=== PATIENT | female | born 1950 | race Caucasian/White ===

== ENCOUNTER 2020-05-06 04:29 | Emergency (ER) | payer MEDICARE, OTHER, SELFPAY ==
--- NOTE | 2020-05-06 | CT_ITS ---
EXAMINATION: CT HIP WITHOUT CONTRAST, LEFT CLINICAL INFORMATION: Pain COMPARISON: Radiographs from today TECHNIQUE: Multidetector volumetric imaging of the left hip performed without IV contrast. Coronal and sagittal reformatted images are obtained and reviewed. This CT examination was performed using dose optimization techniques as appropriate, variously including the following: *Automated exposure control *Adjustment of mA and/or kV according to patient size (this includes techniques or standardized protocols for targeted exams where dose is matched to indication/reason for exam; i.e. extremities or head) *Use of iterative reconstruction technique DLP: 211 mGy-cm FINDINGS: There is a minimally displaced fracture of the medial aspect of the left superior pubic ramus. The fracture line does not extend to the pubic symphysis. There is a fracture which is essentially nondisplaced involving the left inferior pubic ramus. The femoral head articulates appropriately with its acetabulum. There is no femoral fracture. Diffuse colonic diverticulosis noted. No lymphadenopathy seen. Mild stranding in the subcutaneous tissues overlying the left hip laterally. IMPRESSION: Left superior and inferior pubic rami fractures, as seen on recent prior radiographs.
--- NOTE | 2020-05-06 | XR_ITS ---
EXAMINATION: XR HIP, LEFT CLINICAL INFORMATION: Fall COMPARISON: None TECHNIQUE: Two views of the left hip. Frontal view of the pelvis. FINDINGS: Nondisplaced fractures are seen involving the left superior and inferior pubic rami. The hips are well aligned. The pubic symphysis is well aligned. The sacroiliac joints are symmetric. The bowel gas pattern is unremarkable. IMPRESSION: Nondisplaced left superior and inferior pubic rami fractures.
[2020-05-06 04:41] VITALS: PULSE 75; RESP 18; TEMP 36.9; O2SAT 96; BMI 45.5
[2020-05-06 04:51] VITALS: BP 140/60; PULSE 77; RESP 18; O2SAT 98
--- NOTE | 2020-05-06 04:59 | ED_ITS ---
HPI - Fall General Chief Complaint: Fall Stated Complaint: FALL HIP PAIN Time Seen by Provider: 05/06/20 04:40 Source: patient Mode of arrival: ambulatory History of Present Illness HPI Narrative: patient states was walking outside and tripped and fell onto left side. Patient states since then was able to stand however having pain on her hip area. Did not feel any chest pain shortness of breath or dizziness prior to fall. Did not hit head during. Patient denies numbness to the left lower extremity denies any other pain Onset (ago): hour(s) ( 2 hours) Fall from: standing Fall witnessed: no Place fall occurred: home Loss of consciousness: none Prolonged down time: no Context: tripped/slipped Location of injury - extremities: left: lower leg Severity: mild Severity scale (1-10): 3 Related Data Allergies Allergy/AdvReac Type Severity Reaction Status Date / Time amoxicillin Allergy Intermediate ? Verified 05/06/20 04:41 Review of Systems Review of Systems: Constitutional : No Weight loss, No Fever, No Chills, No Night Sweats, No Fatigue, No Malaise ENT/Mouth : No Hearing loss, No Ear Pain, No Nasal Congestion, No Sinus Pain, No Hoarseness, No sore throat, No Rhinorrhea, No Swallowing Difficulty Eyes: No Eye Pain, No Swelling, No Redness, No Foreign Body, No Discharge, No Vision Changes Cardiovascular : No Chest Pain, No SOB, No Dyspnea on Exertion, No Orthopnea, No Edema, No Palpitations Respiratory : No Cough, No Sputum, No Wheezing, No Smoke Exposure, No Dyspnea Gastrointestinal : No Nausea, No Vomiting, No Diarrhea, No Constipation, No abdominal Pain, No Hematochezia, No Melena Genitourinary : no irregular bleeding, No Dysuria, No Urinary Frequency, No Hematuria, No Urinary Incontinence, No Urgency, No Flank Pain, No Urinary Flow Changes, No Hesitancy Musculoskeletal : No joint pain, No Myalgias, No Joint Swelling left hip pain Skin : No Skin Lesions, No rash Neuro : No Weakness, No Numbness, No Paresthesias, No Loss of Consciousness, No Dizziness, No Headache Psych : No Anxiety/Panic, No Depression, No SI/HI/AH/VH, No Social Issues, Heme/Lymph: No Bruising, No Bleeding,No Lymphadenopathy Endocrine : No Polyuria, No Polydipsia, No Temperature Intolerance [facility] Past Medical History Medical History COPD (chronic obstructive pulmonary disease) Family History Family History (Updated 05/06/20 @ 05:01 by Jesús Tillman DO) Other Family history non-contributory Social History Social History Smoking Status: Current every day smoker Physical Exam Vital Signs and I&O and Narrative: Vital Signs and I&O: Vital Signs Temp 98.5 F 05/06/20 04:41 Pulse 77 05/06/20 04:51 Resp 18 05/06/20 04:51 BP 140/60 H 05/06/20 04:51 Pulse Ox 98 05/06/20 04:51 Intake & Output 05/05/20 05/05/20 05/06/20 06:59 18:59 06:59 Weight 128 kg Body Mass Index 45.5 vital signs reviewed Appearance: Alert. Oriented X3. No acute distress. Eyes: Pupils equal, round and reactive to light. ENT: Pharynx normal. Neck: Normal inspection. Neck supple. No lymph nodes noted. No crepitus CVS: Normal heart rate and rhythm. Pulses normal. Normal S1 and S2 Respiratory: No respiratory distress. Breath sounds normal. No Wheezing. No rales Abdomen: Soft and nontender. No rigidity. No distention. good BS x4 Skin: Skin warm and dry. Normal skin color. Normal skin turgor. Extremities: No lower extremity edema. Neurovascular intact to all extremities. No Lacerations. No Rash. tenderness to anterior palpation of left hip. Painful left hip with active leg raising of the left Neuro: Oriented X 3. No motor deficit. No sensory deficit. Moving all extermities. No slurred speech.
[2020-05-06 06:03] VITALS: BP 123/71; PULSE 71; RESP 18
== END 2020-05-06 07:08 | disposition home or self-care (01) ==
PROVIDERS: Emergency Provider Emergency Medicine; PCP Internal Medicine
DX: S89.92XA Unspecified injury of left lower leg, initial encounter (principal); M79.662 Pain in left lower leg; W01.0XXA Fall on same level from slipping, tripping and stumbling without subsequent striking against object, initial encounter; Y93.01 Activity, walking, marching and hiking; Y92.9 Unspecified place or not applicable; F17.200 Nicotine dependence, unspecified, uncomplicated; Z71.6 Tobacco abuse counseling
CPT/HCPCS: 73502; 73700; 99284

== ENCOUNTER 2020-05-06 14:24 | Emergency (ER) | payer MEDICARE, OTHER, SELFPAY ==
[2020-05-06 14:28] VITALS: BP 122/67; PULSE 89; RESP 18; TEMP 36.4; O2SAT 98; BMI 20.6
--- NOTE | 2020-05-06 16:06 | ED_ITS ---
HPI - General Adult General Chief complaint: General Medical Stated complaint: PAIN CONTROL Time Seen by Provider: 05/06/20 16:06 History of Present Illness HPI narrative: patient is here for pain from a pelvic fracture which occurred yesterday, she was seen in the ER last night and discharged home with a prescription for Motrin CT scan showed pelvic fractures She is able to ambulate but it is very painful, and the pain level is moderate to severe Related Data Previous Rx's Medication Instructions Recorded ibuprofen [Motrin IB] 600 mg PO Q8H PRN #20 tab 05/06/20 oxycodone 5 mg PO Q6H PRN #30 cap 05/06/20 Allergies Allergy/AdvReac Type Severity Reaction Status Date / Time amoxicillin Allergy Intermediate ? Verified 05/06/20 04:41 Review of Systems Review of Systems: there is no headache no neck pain no chest pain no shortness of breath no abdominal pain, there is pain with ambulation and weight- bearing and with standing up There is no calf pain, no numbness no weakness no paresthesias PMFSH Past Medical History Source: nursing notes reviewed Medical History COPD (chronic obstructive pulmonary disease) Family History Family History (Updated 05/06/20 @ 05:01 by Jesús Tillman DO) Other Family history non-contributory Social History Social History Alcohol intake: current Alcohol intake frequency: holidays/special occasions only Alcohol type: wine Smoking Status: Current some day smoker Smoked in Last 30 Days: No Use of substances other than those prescribed or required for medical reasons: No Advance Directives: No Advance Directives Information Provided: Yes Physical Exam Vital Signs: Vital Signs: Vital Signs Temp Pulse Resp BP Pulse Ox 05/06/20 14:28 97.6 F 89 18 122/67 98 Body Mass Index 20.6 patient is normocephalic, atraumatic The neck is supple and nontender Respiratory no acute distress Abdomen soft nontender Extremities there is tenderness over the anterior pelvic bones and pain is reproduced with movement of the left leg and it is very painful to elevate her left leg, very painful to bear weight but she is able with the assistance of crutches Skin no rash Neuro A&O x3, no motor weakness, no loss of sensation Course Course Course Narrative: patient was treated with oxycodone as a trial to see if that an able her to be more comfortable and to do activities of daily life at home She was offered rehab placement and refused and wants to try to make it home Discharge Plan Discharge Clinical Impression: Pubic ramus fracture Qualifiers: Encounter type: sequela Fracture type: closed Laterality: unspecified l aterality Qualified Code(s): S32.599S - Other specified fracture of unspecified pubis, sequela Patient Disposition: Home, Self-Care Additional Instructions: we will try to see if you are able to function at home with stronger pain medicine so I wrote for oxycodone which is a narcotic so use with caution It can cause constipation so take stool softener available [id number] Return any time if worse Follow with primary doctor or orthopedist for physical therapy and further evaluation Prescriptions: New oxycodone 5 mg capsule 5 mg PO Q6H PRN (Reason: pain) Qty: 30 RF: 0 No Action ibuprofen [Motrin IB] 200 mg tablet 600 mg PO Q8H PRN (Reason: pain) Qty: 20 RF: 0 Interventions: ED Discharge Assessment Last Done: 05/06/20 16:57
[2020-05-06] MEDS: oxyCODONE HCl Immed Release 5 MG TABLET PO (16:35)
== END 2020-05-06 16:50 | disposition home or self-care (01) ==
PROVIDERS: Emergency Provider Emergency Medicine; PCP Internal Medicine
DX: S32.592A Other specified fracture of left pubis, initial encounter for closed fracture (principal); S32.591A Other specified fracture of right pubis, initial encounter for closed fracture; X58.XXXA Exposure to other specified factors, initial encounter; Y93.9 Activity, unspecified; Y92.9 Unspecified place or not applicable; Y99.9 Unspecified external cause status; F17.200 Nicotine dependence, unspecified, uncomplicated; Z71.6 Tobacco abuse counseling
CPT/HCPCS: 73502; 73700; 99283; 99284

== ENCOUNTER → 2020-05-15 13:06 | Outpatient (BNVA) | payer MEDICARE, OTHER, SELFPAY | PROVIDERS: PCP Internal Medicine; Referring Provider Internal Medicine; Visit Provider Physician Assistant | DX: S32.502D Unspecified fracture of left pubis, subsequent encounter for fracture with routine healing (principal) | CPT/HCPCS: 99203 ==

== ENCOUNTER 2020-06-13 12:05 | Outpatient (REF) | payer MEDICARE, OTHER, SELFPAY ==
--- NOTE | 2020-06-13 12:27 | XR_ITS ---
EXAMINATION: XR PELVIS CLINICAL INFORMATION: Closed fracture of the pubis COMPARISON: CT 05/06/2020 TECHNIQUE: AP view of the pelvis. FINDINGS: Left superior and inferior pubic rami fractures are again noted with similar alignment to the prior imaging. The pubic symphysis remains aligned. The hips are well aligned. The sacroiliac joints are intact. Degenerative changes of the lower lumbar spine. XR/XR pelvis 1-2V IMPRESSION: Redemonstration of left superior and inferior pubic rami fractures with unchanged alignment.
== END 2020-06-13 12:06 | disposition home or self-care (01) ==
LOC: HO.HOSX 12:05
PROVIDERS: PCP Internal Medicine; Referring Provider Internal Medicine; Visit Provider Physician Assistant
DX: S32.599A Other specified fracture of unspecified pubis, initial encounter for closed fracture (principal); M79.18 Myalgia, other site
CPT/HCPCS: 72170; 99212

== ENCOUNTER 2021-12-13 07:35 | Outpatient (REF) | payer MEDICARE, OTHER, SELFPAY ==
[2021-12-13 07:55] LABS: MANUAL DIFF FLAG NO
[2021-12-13 08:04] LABS: Basophils Absolute Auto 0.1 X10*3/uL (0.0-0.2); Basophils Percent Auto 1.2 % (0-2); Eosinophils Absolute Auto 0.4 X10*3/uL (0.0-0.4); Eosinophils Percent Auto 6.9 % (0-4); Hemoglobin 13.8 g/dl (12.0-16.0); Imm Gran Abs Auto 0.01 X10*3/uL (0.00-0.03); Imm Gran Pct Auto 0.2 % (0.0-0.4); Lymphocytes Absolute Auto 1.2 X10*3/uL (1.2-4.9); Lymphocytes Percent Auto 20.4 % (20-40); Mean Corpuscular HGB Conc 33.7 g/dl (31.0-35.0); Mean Corpuscular Hemoglobin 30.9 pg (27.0-33.0); Mean Corpuscular Volume 91.7 fL (80.0-98.0); Mean Platelet Volume 8.7 fL (9.4-12.3); Monocytes Absolute Auto 0.6 X10*3/uL (0.1-1.2); Neutrophils Absolute Auto 3.7 x10*3/uL (2.0-8.3); Neutrophils Percent Auto 61.3 % (45-73); Platelet Count 289 X10*3/uL (160-400); Red Blood Count 4.47 X10*6/uL (4.20-5.50); Red Cell Distribution Width 12.9 % (11.0-16.0)
[2021-12-13 08:42] LABS: Alanine Aminotransferase 16 U/L (0-31); Albumin Level 4.2 g/dL (3.5-5.0); Alkaline Phosphatase 51 U/L (39-117); Anion Gap 11 (12-20); Aspartate Amino Transferase 24 U/L (5-31); Bilirubin Total 0.9 mg/dL (0.0-1.0); Blood Urea Nitrogen 7 mg/dL (9-16); Calcium 9.9 mg/dL (8.4-10.2); Carbon Dioxide 28 mmol/L (22-29); Chloride 102 mmol/L (96-108); Cholesterol 251 mg/dL; Estimated Glomerular Filt Rate > 60; Glucose Random 95 mg/dL (60-115); HDL Cholesterol 98 mg/dL; LDL Cholesterol Calculated 141 mg/dl; Potassium 4.1 mmol/L (3.3-5.1); Sodium 137 mmol/L (135-145); Total Protein 6.8 g/dL (6.5-8.0); Triglycerides 60 mg/dL
[2021-12-13 09:04] LABS: Thyroid Stimulating Hormone 1.82 uIU/mL (0.32-4.0); Vitamin D 25-OH Total 39.7 ng/mL (>30)
[2021-12-13 09:11] LABS: Vitamin B12 576 pg/mL (200-900)
== END 2021-12-13 07:36 | disposition home or self-care (01) ==
LOC: HO.LAB 07:35
PROVIDERS: PCP Internal Medicine; Visit Provider Internal Medicine
DX: E78.00 Pure hypercholesterolemia, unspecified (principal)
CPT/HCPCS: 36415; 80053; 80061; 82306; 82607; 84443; 85025

== ENCOUNTER 2022-02-07 10:04 | Outpatient (REF) | payer MEDICARE, OTHER, SELFPAY ==
--- NOTE | ~2022-02-07 | XR_ITS ---
EXAMINATION: XR lumbar spine 2-3V CLINICAL INFORMATION: Reason for Exam LOW BACK PAIN COMPARISON: Lumbar spine radiographs 04/13/2015 TECHNIQUE: 3 views of the lumbar spine FINDINGS: 5 nonrib-bearing lumbar-type vertebral bodies. Age-indeterminate wedge compression deformity of the L1 vertebral body with 75% height loss, new from 2014. Mild age-indeterminate superior endplate wedge compression deformity of the L2 and L3 vertebral bodies with approximately 20% height loss, new from 201415. Grade 1 anterolisthesis of L4 on L5. Mild multilevel degenerative disc disease with loss of disc space height, facet arthropathy and disc osteophyte complexes. Atherosclerotic calcifications of the abdominal aorta. XR/XR lumbar spine 2-3V IMPRESSION: * Age-indeterminate wedge compression deformity of the L1 vertebral body with 75% height loss, new from 2014. * Mild age-indeterminate superior endplate wedge compression deformity of the L2 and L3 vertebral bodies with approximately 20% height loss, new from 2014. * Grade 1 anterolisthesis of L4 on L5. * Moderate spondylosis of the lumbar spine, as above detailed.
== END 2022-02-07 10:05 | disposition home or self-care (01) ==
LOC: HO.XRAY 10:04
PROVIDERS: PCP Internal Medicine; Visit Provider Physician Assistant
DX: M54.59 Other low back pain (principal)
CPT/HCPCS: 72100

== ENCOUNTER 2022-05-02 13:01 | Outpatient (REF) | payer MEDICARE, OTHER, SELFPAY | END 2022-05-02 13:02 | disposition home or self-care (01) | LOC: HO.XRAY 13:01 | PROVIDERS: PCP Internal Medicine; Visit Provider Student in an Organized Health Care Education/Training Program | DX: Z13.89 Encounter for screening for other disorder (principal) ==

== ENCOUNTER 2022-05-07 13:16 | Outpatient (REF) | payer MEDICARE, OTHER, SELFPAY ==
--- NOTE | ~2022-05-07 | MM_ITS ---
EXAMINATION: BONE DENSITOMETRY CLINICAL INDICATION: Vertebral fracture assessment. COMPARISON: Baseline BD dated 01/06/2018. TECHNIQUE: Using a [employer] DXA System (software version: 13.1) manufactured by [employer], dual-energy x-ray absorptiometry was performed of the lumbar spine and left hip. The images are of good technical quality. Summary results are attached. FINDINGS: AP SPINE L1-L3 (excluding L4): The data of L1-L4 has been changed to exclude the L4 vertebral body, because degenerative changes at this level may cause overestimation of lumbar spine density. Current: BMD 1.069 g/cm2, Z-score 1.3, T-score -0.8, normal, 15.8% increase from baseline (<5% change is not significant). Baseline: BMD 0.923 g/cm2. LEFT FEMUR, NECK: Current: BMD 0.590 g/cm2, Z-score -1.1, T-score -3.2, osteoporosis. Baseline: BMD 0.693 g/cm2. LEFT FEMUR, TOTAL: Current: BMD 0.561 g/cm2, Z-score -1.6, T-score -3.5, osteoporosis, 17.0% decrease from baseline (<5% change is not significant). Baseline: BMD 0.676 g/cm2. IDENTIFIED RISK FACTORS: Menopause, height loss, bilateral oophorectomy, history of fracture (adult), hysterectomy, osteoporosis, tobacco use (current smoker). HISTORY OF FRACTURE: Pelvis. MEDICATIONS: Calcium, vitamin D. MM/XR DEXA axial skeleton IMPRESSION: 1. DIAGNOSIS: Osteoporosis based on the lowest T-score value of -3.5 in the total femur applying World Health Organization criteria. 2. 10-YEAR FRACTURE RISK PREDICTION, FRAX: According to the guidelines, FRAX calculation should only be performed on patients in the osteopenia bone density category. Therefore, FRAX was not performed on this patient. 3. Treatment Recommendations: NOF guidelines recommend consideration for treatment in postmenopausal women and men age 50 and older presenting with the following: -A hip or vertebral (clinical or morphometric) fracture. -T-score less than or equal to -2.5 at the femoral neck or spine after appropriate evaluation to exclude secondary causes. -Low bone mass at the hip or spine and a 10-year fracture probability by FRAX of greater than or equal to 3% for hip fracture or greater than or equal to 20% for major osteoporotic fracture based on the [place] adapted WHO algorithm. 4. Other Recommendations: All treatment decisions require clinical judgment and consideration of individual patient factors, including patient preferences, comorbidities, previous drug use, risk factors not captured in the FRAX model (e.g. frailty, falls, vitamin D deficiency, increased bone turnover, interval significant decline in bone density) and possible under or overestimation of fracture risk by FRAX. Additional medical evaluation for secondary cause of low bone mineral density may be appropriate. FUTURE SCAN RECOMMENDATION: People with diagnosed cases of osteoporosis or at high risk for fracture should have regular bone mineral density tests. For patients eligible for Medicare, routine testing is allowed once every 2 years. The testing frequency can be increased to one year for patients who have rapidly progressing disease, those who are receiving or discontinuing medical therapy to restore bone mass, or have additional risk factors.
== END 2022-05-07 13:17 | disposition home or self-care (01) ==
LOC: HO.MAMMO 13:16
PROVIDERS: PCP Internal Medicine; Visit Provider Student in an Organized Health Care Education/Training Program
DX: Z13.820 Encounter for screening for osteoporosis (principal); S32.000A Wedge compression fracture of unspecified lumbar vertebra, initial encounter for closed fracture; Z78.0 Asymptomatic menopausal state
CPT/HCPCS: 77080

== ENCOUNTER 2022-07-10 07:43 | Outpatient (REF) | payer MEDICARE, OTHER, SELFPAY ==
--- NOTE | ~2022-07-10 | XR_ITS ---
EXAMINATION: XR lumbar spine 2-3V CLINICAL INFORMATION: Reason for Exam AGE-REL OSTEOPOR W CURRENT PATH FRACTURE VERTEB SEQUELA COMPARISON: Lumbar spine radiographs 02/07/2022 TECHNIQUE: 3 views of the lumbar spine FINDINGS: 5 nonrib-bearing lumbar-type vertebral bodies. Similar L1 wedge compression deformity with 75% height loss. Status post kyphoplasty of L2 and L4. Similar mild wedge compression deformity of the L3 vertebral body with 20% height loss. Stable grade 1 anterolisthesis of L4 on L5. Read 1 retrolisthesis of L5 on S1. Age-indeterminate T9 wedge compression deformity with approximately 25% height loss was not previously included in the [id number]. Dextroconvex curvature of the thoracolumbar spine. Multilevel degenerative disc disease worst at L5-S1 where there is advanced loss of disc space height and moderate facet arthropathy. Atherosclerotic calcifications of the abdominal aorta. XR/XR lumbar spine 2-3V IMPRESSION: * Status post kyphoplasty of L2 and L4 wedge compression deformities. . Age-indeterminate T9 wedge compression deformity with approximately 25% height loss was not previously included in the [id number]-hn-kerm. L1 and L3 wedge compression deformities appear similar to prior. * Multilevel degenerative disc disease worst at L5-S1 where there is advanced loss of disc space height and moderate facet arthropathy. * Spondylolisthesis, as above detailed.
== END 2022-07-10 07:44 | disposition home or self-care (01) ==
LOC: HO.XRAY 07:43
PROVIDERS: PCP Internal Medicine; Visit Provider Student in an Organized Health Care Education/Training Program
DX: M80.08XS Age-related osteoporosis with current pathological fracture, vertebra(e), sequela (principal)
CPT/HCPCS: 72100

== ENCOUNTER 2022-12-03 07:29 | Day surgery (SDC) | payer MEDICARE, OTHER, SELFPAY ==
--- NOTE | 2022-12-02 14:51 | HO.ANESPROP2 ---
Documented by User: Karey Pardo NP 12/02/22 14:52 HPI - Anesthesia Eval Consult details Narrative: 72yo F for Colonoscopy PMFSH Active Problems Active Problems: All Active Problems (Updated 12/02/22 @ 14:50 by Jannet Singh RN) Pubic ramus fracture (Acute) Piriformis muscle pain (Acute) Past Medical History Medical History Allergic rhinitis Anal fistula COPD (chronic obstructive pulmonary disease) Elevated cholesterol Osteoarthritis Osteoporosis Family History Family History Other Family history non-contributory Surgical History Surgical History (Updated 12/03/22 @ 08:16 by Fnany Marinelli RN) H/O hemorrhoidectomy H/O: hysterectomy Hx of colonoscopy Hx of tonsillectomy Social History Social History Alcohol intake: current Alcohol intake frequency: holidays/special occasions only Alcohol type: wine Patient Tobacco Use Status: Current everyday Tobacco user Tobacco use type: Cigarette Cigarettes Per Day: 1 Use of substances other than those prescribed or required for medical reasons: No Are you DNR?: No Advance Directives: No Advance Directives Information Provided: Yes Meds Allergies Allergy/AdvReac Type Severity Reaction Status Date / Time amoxicillin Allergy Intermediate ? Verified 12/03/22 08:11 Home Medications Medication Instructions Recorded Confirmed Last Taken Type multivit, calcium and tab PO DAILY 05/15/20 Unknown History minerals-vitamin D3-herbal#181 1,000 unit tablet garlic 1,000 mg capsule 1,000 mg PO BID 12/03/22 12/03/22 Unknown History Exam Exam Date and Time: December 02, 2022 1451 Assessment and Plan Assessment Anesthesia Assessment: Chart Reviewed Documented by User: Dion Leblanc MD 12/03/22 17:11 HPI - Anesthesia Eval Consult details Narrative: 72yo F for Colonoscopy chronic back pain PMFSH Past Medical History Medical History Allergic rhinitis Anal fistula COPD (chronic obstructive pulmonary disease) Elevated cholesterol Osteoarthritis Osteoporosis Functional capacity: independent ambulation Family History Family History Other Family history non-contributory Family history of problems with anesthesia: No Surgical History Surgical History (Updated 12/03/22 @ 08:16 by Fanny Marinelli RN) H/O hemorrhoidectomy H/O: hysterectomy Hx of colonoscopy Hx of tonsillectomy History of Problems with Anesthesia: No Social History Social History Alcohol intake: current Alcohol intake frequency: holidays/special occasions only Alcohol type: wine Patient Tobacco Use Status: Current everyday Tobacco user Tobacco use type: Cigarette Cigarettes Per Day: 1 Use of substances other than those prescribed or required for medical reasons: No Are you DNR?: No Advance Directives: No Advance Directives Information Provided: Yes Meds Allergies Allergy/AdvReac Type Severity Reaction Status Date / Time amoxicillin Allergy Intermediate ? Verified 12/03/22 08:11 Home Medications Medication Instructions Recorded Confirmed Last Taken Type multivit, calcium and tab PO DAILY 05/15/20 Unknown History minerals-vitamin D3-herbal#181 1,000 unit tablet garlic 1,000 mg capsule 1,000 mg PO BID 12/03/22 12/03/22 Unknown History Exam Airway Mallampati Class: III Neck ROM: Limited Loose/Missing/Broken Teeth: Yes (chipped upper teeth) Assessment and Plan Assessment Anesthesia Assessment: Anesthesia Plan Discussed Final Anesthetic Review Family History of Problems with Anesthesia: No History of Problems with Anesthesia: No NPO: Yes ASA Class: III Final Preanesthetic Review: Meds/Allgs Chart Reviewed, Consent Obtained/Reviewed and Anes Risks/Benef Reviewed Patient Risk: Intermediate Procedure Risk: Intermediate Anesthetic Plan Anesthetic Plan: MAC: Disposition: Standard PACU
--- OUTSIDE RECORDS SUMMARY | 2022-12-03 07:31 | XMS_ITS | Continuity of Care Document ---
Author Name Unknown Organization [facility] Address [address] [place] [address]- Care Team Providers Care Chief Cardiopulmonary Technologist Name Role Phone Claribel HUNT Misha Rollins Primary Care Physician [phone] Encounter [facility] [place] Date(s): 09/17/21 - 10/17/21 [facility] [address] [place] [address] Attending Physician: Rommel Blum Admitting Physician: AdmRommel kaur Referring Physician: Admtr ArDafne Allergies, Adverse Reactions, Alerts Substance Reaction Severity Status amoxicillin Active Immunizations Given and Recorded Vaccine Date Status Refusal Reason SARS-CoV-2 (COVID-19) mRNA-1273 vaccine 10/22/20 G iven SARS-CoV-2 (COVID-19) mRNA-1273 vaccine 09/24/20 G iven tetanus/diphtheria/pertussis, acel(Tdap) 1 08/20/19 Given pneumococcal 23-valent vaccine 2 08/20/19 Given pneumococcal 13-valent vaccine 07/28/14 Recorded 1Result Comment: [facility]-[id number] 2Result Comment: [facility]-[id number] Medications Caltrate 600 + D By Mouth, 2 times a day, 0 Refills, Maintenance, 08/20/19 13:34:00 EST Start Date: 08/20/19 Status: Ordered Garlic 0 Refills, Maintenance, 08/20/19 13:34:00 EST Start Date: 08/20/19 Status: Ordered Multivitamin Daily, 0 Refills, Maintenance, 08/20/19 13:34:00 EST Start Date: 08/20/19 Status: Ordered Problem List Condition Effective Dates Status Health Status Inform ant Allergic rhinitis(Confirmed) Active Family history of colon canc er in mother(Confirmed) Active Heavy cigarette smoker (20-3 9 per day)(Confirmed) 10/29/19 Active Hypercholesterolemia(Confirmed) Active Nodule of upper lobe of righ t lung(Confirmed) 09/23/19 Active Left upper lobe pulmonary nodule(Confirmed) 09/23/19 Active Osteoarthritis of knees, bilateral(Confirmed) Active Osteoporosis(Confirmed) Active Social History Social History Type Response Smoking Status 10 or more cigarette s (1/2 pack or more)/day in last 30 days entered on: 08/20/19 Sex
--- OUTSIDE RECORDS SUMMARY | 2022-12-03 07:31 | XMS_ITS | Continuity of Care Document ---
Author Name Unknown Organization [facility] Address [address] [place] [address]- Care Team Providers Care Travel Rn Name Role Phone Mike De Luna MD Primary Care Physician [place] [facility] [place](s): 06/29/20 - 11/22/20 [facility] [address] [place] [id number]- Discharge Disposition: A-D/C Home Attending Physician: Bobby Colorado MD Admitting Physician: Bobby Colorado MD Referring Physician: Christy Moralez MD Allergies, Adverse Reactions, Alerts Substance Reaction Severity Status amoxicillin Active Immunizations Given and Recorded Vaccine Date Status Refusal Reason SARS-CoV-2 (COVID-19) mRNA-1273 vaccine 10/22/20 G iven SARS-CoV-2 (COVID-19) mRNA-1273 vaccine 09/24/20 G iven tetanus/diphtheria/pertussis, acel(Tdap) 1 08/20/19 Given pneumococcal 23-valent vaccine 2 08/20/19 Given pneumococcal 13-valent vaccine 07/28/14 Recorded 1Result Comment: [facility]-[id number] 2Result Comment: [facility]-[id number] Medications Caltrate 600 + D By Mouth, [...]
--- OUTSIDE RECORDS SUMMARY | 2022-12-03 07:31 | XMS_ITS | Continuity of Care Document ---
Author Name Unknown Organization [facility] Address [address] [place] [address]- Care Team Providers Care Coordinator Cardiopulmonary Services Name Role Phone Mike De Luna MD Primary Care Physician [phone] Encounter [facility] [place] Date(s): 12/14/20 - 01/13/21 [facility] [address] [place], [place] [address] Attending Physician: Admtr, Rommel Admitting Physician: AdmtrRommel Referring Physician: Admtr, Ar8 Allergies, Adverse Reactions, Alerts Substance Reaction Severity Status amoxicillin Active Immunizations Given and Recorded Vaccine Date Status Refusal Reason SARS-CoV-2 (COVID-19) mRNA-1273 vaccine 10/22/20 G iven SARS-CoV-2 (COVID-19) mRNA-1273 vaccine 09/24/20 G iven tetanus/diphtheria/pertussis, acel(Tdap) 1 08/20/19 Given pneumococcal 23-valent vaccine 2 08/20/19 Given pneumococcal 13-valent vaccine 07/28/14 Recorded 1Result Comment: [facility]-[id number] 2Result Comment: [facility]-[id number] Medications Caltrate 600 + D By Mouth, [...]
--- OUTSIDE RECORDS SUMMARY | 2022-12-03 07:31 | XMS_ITS ---
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 non-steroidal anti-inflammat ories (NSAID) Z79.1 Active 79460234147260 3 Problem Colon cancer screening Z12.11 Active [id number] ALLERGIES Substance Reaction Event Type Date Status Antibiotic Unknown Drug Allergy Feb, Active ENCOUNTERS Encounter Location Date Diagnosis [facility] Outpatient [address] [place] [id number] November, [facility] [address] [place] [phone] Oct, [facility] [address] [place] [phone] May, [facility] [address] [place] [phone] Feb, Colon cancer screening Z12.11 and 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) use of non-steroidal anti-inflammatories (NSAID) Z79.1 [facility] [address] [place] [phone] Sep, IMMUNIZATIONS No Known Immunizations SOCIAL HISTORY Qualifiers Date Current Smoker REASON FOR REFERRAL FUNCTIONAL STATUS PLAN OF CARE Activity Details VITAL SIGNS Weight 123 lbs 2022-02-25 Height 65.5 in 2022-02-25 BMI 20.15 kg/m2 2022-02-25 Temperature 99.3 degrees Fahrenheit Blood pressure systolic 000 mm Hg Blood pressure diastolic 00 mm Hg 2022-02 MEDICATIONS Medication Instructions Dosage Frequency Start Date End Date Duration Status Stool Softener 100 MG Orally Once a day 1 capsule as needed 24h Feb, 30 day(s) Active MiraLax (colon prep) 17 GM/SCOOP Orally begin at 5:00 p.m. the day before the procedure mixed with Gatorade or Crystal Light Feb, 1 day Active Calcium 600+D 600-800 MG-UNIT Orally Once a day 1 tablet with a meal 24h Feb, 30 day(s) Active Garlic 300 MG as directed Feb, Active Ibuprofen 800 MG 30 Active PROCEDURES Procedure Date Ordered Result Body Site DOC RSN FOR NOT SCREEN/REC F/U HBP Feb 25, 2022 Pt scrn tbco and id as user Feb 25, 2022 DOC MEDS VERIFIED W/PT OR RE Feb 25, 2022 COLORECTAL CA SCREEN DOC REV Feb 25, 2022 RESULTS No Results REASON FOR VISIT SCREENING COLON, Rescheduled her colon, screening, colon screening, Patient presents today for a colon screening, SCREENING COLON, cancelled 10/20/19 appt Insurance Providers Health Insurance Type Health Plan Insurance Address Health Plan Insurance Phone Health Plan Insurance Name Health Plan Coverage Dates Member ID Patient Relationship to Subscriber Patient Address Patient Phone Patient Name Patient Date of Subscriber ID Subscriber Name Subscriber Date of Group No [place] [address] [facility] [id number] [place] SHREYA DEVINE [id number] [facility] COMMONWEAL TH INDEMNITY [address] [facility]ON[facility] [id number] [facility] COMMONWEAL TH INDEMNITY self SHREYA DEVINE [id number]
--- OUTSIDE RECORDS SUMMARY | 2022-12-03 07:32 | XMS_ITS | Continuity of Care Document ---
Author Name Unknown Organization [facility] Address [address] [place], [place] [address]josh landers, [address] [place] [address]- Care Team Providers Care Optical Dispenser Name Role Phone Annamarie GATES, Mike Zamora Primary Care Physician [phone] Encounter [facility] Date(s): 03/10/20 - 03/17/20 [facility] [address] [place] [address], [address] [place] [address]- [facility] Attending Physician: Christy Moralez MD Allergies, Adverse Reactions, Alerts Substance Reaction Severity Status amoxicillin Active Immunizations Given and Recorded Vaccine Date Status Refusal Reason tetanus/diphtheria/pertussis, acel(Tdap) 1 08/20/19 Given pneumococcal 23-valent vaccine 2 08/20/19 Given pneumococcal 13-valent vaccine 07/28/14 Recorded 1Result Comment: [facility]-[id number] 2Result Comment: [facility]-[id number] Medications Caltrate 600 + D By Mouth, 2 times a day, 0 Refills, Maintenance, 08/20/19 13:34:00 EST Start Date: 08/20/19 Status: Ordered Fosamax 70 mg oral tablet 1 tablet = 70 mg, By Mouth, Every week, # 12 tablet, 3 Refills, Maintenance, 08/20/19 14:11:00 EST,Tablet, [id number], 166.1, cm, 08/20/19 13:59:00 EST, Height Start Date: 08/20/19 Stop Date: 07/21/20 Status: Ordered Garlic 0 Refills, Maintenance, 08/20/19 13:34:00 EST Start Date: 08/20/19 Status: Ordered Multivitamin Daily, 0 Refills, Maintenance, 08/20/19 13:34:00 EST Start Date: 08/20/19 Status: Ordered nicotine 14 mg/24 hr transdermal film, extended release 1 patch, Topically, Daily, # 30 patch, 3 Refills, Maintenance, 11/01/19 10:14:00 EDT, Patch, [id number], 1 patch Topically Daily, 166.1, cm, 10/29/19 14:35:00 EDT, Height Start Date: 11/01/19 Status: Ordered Problem List Condition Effective Dates [...]
--- OUTSIDE RECORDS SUMMARY | 2022-12-03 07:32 | XMS_ITS | Continuity of Care Document ---
Author Name Unknown Organization [facility] Address [address] [place] [address]- Care Team Providers Care Avaya Engineer Name Role Phone Mike De Luna MD Primary Care Physician Encounter [facility] Date(s): 08/28/19 - 12/26/19 [facility] Adult [address] [place] [address]- [facility] Attending Physician: Mike De Luna MD Allergies, Adverse Reactions, Alerts Substance Reaction Severity Status amoxicillin Active Immunizations Given and Recorded Vaccine Date Status Refusal Reason tetanus/diphtheria/pertussis, acel(Tdap) 1 08/20/19 Given pneumococcal 23-valent vaccine 2 08/20/19 Given pneumococcal 13-valent vaccine 07/28/14 Recorded 1Result Comment: [facility]-[id number] 2Result Comment: [facility]-[id number] Medications Caltrate 600 + D By Mouth, [...] 3 Refills, Maintenance, 11/01/19 10:14:00 EDT, Patch, [id number], 1 patch Topically Daily, 166.1, cm, [...]
--- OUTSIDE RECORDS SUMMARY | 2022-12-03 07:32 | XMS_ITS | Continuity of Care Document ---
Author Name Unknown Organization [facility] Address [address] [place] [address]- Care Team Providers Care Operations Dispatcher Name Role Phone Annamarie GATES, Mike Zamora Primary Care Physician [place] [facility] [place]15[place]20 - 05/23/20 [facility] [address] [place] [address] [facility] Discharge Disposition: A-D/C Home Attending Physician: Bobby Colorado MD Admitting Physician: Bobby Colorado MD Referring Physician: Christy Moralez MD Allergies, Adverse Reactions, Alerts Substance Reaction Severity Status amoxicillin Active Immunizations Given and Recorded Vaccine Date Status Refusal Reason tetanus/diphtheria/pertussis, acel(Tdap) 1 08/20/19 Given pneumococcal 23-valent vaccine 2 08/20/19 Given pneumococcal 13-valent vaccine 07/28/14 Recorded 1Result Comment: [facility]-[id number] 2Result Comment: [facility]-[id number] Medications Caltrate 600 + D By Mouth, [...] Osteoarthritis of knees, bilateral(Confirmed) Active Osteoporosis(Confirmed) Active Vital Signs Most recent to oldest [Reference Range]: 1 Height 166.1 cm (03/23/20 2:39 PM) Weight 60.2 kg (03/23/20 2:39 PM) Pulse Rate [55-90 bpm] 79 bpm (03/23/20 2:39 PM) Body Mass Index [18.5-24.99] 21.82 (03/23/20 2:39 PM) Blood Pressure [90-138/55-84 mm Hg] 175/ 77mm Hg *H* (03/23/20 2:39 PM) Temperature [96.8-100.4 DegF] 97.9 DegF (03/23/20 2:39 PM) Blood pressure sites Arm, right (03/23/20 2:39 PM) Temperature Route Oral (03/23/20 2:39 PM) Dry Weight 60.2 kg (03/23/20 2:39 PM) Weight Obtained Via Standing scale (03/23/20 2:39 PM) Dry Weight Obtained Via Standing scale (03/23/20 2:39 PM) Social History Social History Type Response Smoking Status 10 or more cigarette s (1/2 pack or more)/day in last 30 days entered on: 08/20/19 Sex
--- OUTSIDE RECORDS SUMMARY | 2022-12-03 07:32 | XMS_ITS | Continuity of Care Document ---
Author Name Unknown Organization [facility] Address [address] [place] [address]- Care Team Providers Care Bone Process Operator Name Role Phone Not on Staff, PCP Primary Care Physician Unavail able [facility]counter [facility] Date(s): 04/17/21 - 05/17/21 [facility] [address] [place] [id number] Allergies, Adverse Reactions, Alerts Substance Reaction Severity Status amoxicillin Active Immunizations Given and Recorded Vaccine Date Status Refusal Reason SARS-CoV-2 (COVID-19) mRNA-1273 vaccine 10/22/20 G iven SARS-CoV-2 (COVID-19) mRNA-1273 vaccine 09/24/20 G iven tetanus/diphtheria/pertussis, acel(Tdap) 1 08/20/19 Given pneumococcal 23-valent vaccine 2 08/20/19 Given pneumococcal 13-valent vaccine 07/28/14 Recorded 1Result Comment: [facility]-[id number] 2Result Comment: [facility]-[id number] Medications Caltrate 600 + D By Mouth, [...]
--- OUTSIDE RECORDS SUMMARY | 2022-12-03 07:32 | XMS_ITS | Continuity of Care Document ---
Author Name Unknown Organization [facility] Address [address] [place] [address]- Care Team Providers Care Employment Clerk Name Role Phone Mike De Luna MD Primary Care Physician [phone] En[facility] Date(s): 01/02/21 - 02/01/21 [facility] Care [address] [place] [address] Allergies, Adverse Reactions, Alerts Substance Reaction Severity Status amoxicillin Active Immunizations Given and Recorded Vaccine Date Status Refusal Reason SARS-CoV-2 (COVID-19) mRNA-1273 vaccine 10/22/20 G iven SARS-CoV-2 (COVID-19) mRNA-1273 vaccine 09/24/20 G iven tetanus/diphtheria/pertussis, acel(Tdap) 1 08/20/19 Given pneumococcal 23-valent vaccine 2 08/20/19 Given pneumococcal 13-valent vaccine 07/28/14 Recorded 1Result Comment: [facility]-[id number] 2Result Comment: [facility]-[id number] Medications Caltrate 600 + D By Mouth, [...]
--- OUTSIDE RECORDS SUMMARY | 2022-12-03 07:32 | XMS_ITS | Continuity of Care Document ---
Author Name Unknown Organization [facility] Address [address] [facility], [facility] [address] [place] [address]- Care Team Providers Care Sprayer Operator Name Role Phone Mike De Luna MD Primary Care Physician Encounter 08/20/19 - 10/08/19 [facility] [address], [facility] [address] [place] [address]- [phone] Attending Physician: Mike De Luna MD Admitting Physician: Mike De Luna MD Referring Physician: Mike De Luna MD Allergies, Adverse Reactions, Alerts Substance Reaction Severity Status amoxicillin Active Immunizations Given and Recorded Vaccine Date Status Refusal Reason tetanus/diphtheria/pertussis, acel(Tdap) 1 08/20/19 Given pneumococcal 23-valent vaccine 2 08/20/19 Given pneumococcal 13-valent vaccine 07/28/14 Recorded 1Result Comment: [facility]-[id number] 2Result Comment: [facility]-[id number] Medications Caltrate 600 + D By Mouth, [...] of colon canc er in mother(Confirmed) Active Hypercholesterolemia(Confirmed) Active Osteoarthritis of knees, bilateral(Confirmed) Active Osteoporosis(Confirmed) Active Tobacco abuse(Confirmed) Active Social History Social History Type Response Smoking Status 10 or more cigarette s (1/2 pack or more)/day in last 30 days entered on: 08/20/19 Sex
--- OUTSIDE RECORDS SUMMARY | 2022-12-03 07:32 | XMS_ITS | Continuity of Care Document ---
Author Name Unknown Organization [facility] Address [address] [place], [place] [address]josh landers, [address] [place] [address]- Care Team Providers Care Kingsbury Machine Operator Name Role Phone Annamarie GATES, Mike Zamora Primary Care Physician [phone] Encounter [facility] Date(s): 06/26/20 - 07/03/20 [facility] Surgery [address] [place] [address], [address] [place] [address]- Attending Physician: Christy Moralez MD Allergies, Adverse Reactions, Alerts Substance Reaction Severity Status amoxicillin Active Immunizations Given and Recorded Vaccine Date Status Refusal Reason tetanus/diphtheria/pertussis, acel(Tdap) 1 08/20/19 Given pneumococcal 23-valent vaccine 2 08/20/19 Given pneumococcal 13-valent vaccine 07/28/14 Recorded 1Result Comment: [facility]-[id number] 2Result Comment: [facility]-[id number] Medications Caltrate 600 + D By Mouth, [...]
--- OUTSIDE RECORDS SUMMARY | 2022-12-03 07:32 | XMS_ITS | Continuity of Care Document ---
Author Name Unknown Organization [facility] Address [address] [place] [address]- Care Team Providers Care Foundry Melt Supervisor Name Role Phone Claribel HUNT Misha Rollins Primary Care Physician [phone] Encounter [facility] Date(s): 02/06/22 - 03/08/22 [facility] [address] [place] [address] Attending Physician: Rommel Blum Admitting Physician: AdmtrRommel Referring Physician: Admtr ArDafne Allergies, Adverse Reactions, Alerts Substance Reaction Severity Status amoxicillin Active Immunizations Given and Recorded Vaccine Date Status Refusal Reason SARS-CoV-2 (COVID-19) mRNA-1273 vaccine 10/22/20 G iven SARS-CoV-2 (COVID-19) mRNA-1273 vaccine 09/24/20 G iven tetanus/diphtheria/pertussis, acel(Tdap) 1 08/20/19 Given pneumococcal 23-valent vaccine 2 08/20/19 Given pneumococcal 13-valent vaccine 07/28/14 Recorded 1Result Comment: [facility]-[id number] 2Result Comment: [facility]-[id number] Medications Caltrate 600 + D By Mouth, [...]
--- OUTSIDE RECORDS SUMMARY | 2022-12-03 07:32 | XMS_ITS | Continuity of Care Document ---
Author Name Unknown Organization [facility] Address [address] [place] [address]- Care Team Providers Care Manager Agricultural Name Role Phone Mike De Luna MD Primary Care Physician [phone] En[place] [facility] Date(s): 12/28/19 - 01/27/20 [facility] Adult [address] [place] [address]- [facility] Attending Physician: AdmRommel kaur Admitting Physician: AdmtrRommel Referring Physician: AdmtrRommel Allergies, Adverse Reactions, Alerts Substance Reaction Severity Status amoxicillin Active Immunizations Given and Recorded Vaccine Date Status Refusal Reason tetanus/diphtheria/pertussis, acel(Tdap) 1 08/20/19 Given pneumococcal 23-valent vaccine 2 08/20/19 Given pneumococcal 13-valent vaccine 07/28/14 Recorded 1Result Comment: [facility]-[id number] 2Result Comment: [facility]-[id number] Medications Caltrate 600 + D By Mouth, 2 times a day, 0 Refills, Maintenance, 08/20/19 13:34:00 EST Start Date: 08/20/19 Status: Ordered Fosamax 70 mg oral tablet 1 tablet = 70 mg, By Mouth, Every week, # 12 tablet, 3 Refills, Maintenance, 08/20/19 14:11:00 EST,Tablet, [id number], 166.1, cm, 08/20/19 13:59:00 EST, Height [...]
--- OUTSIDE RECORDS SUMMARY | 2022-12-03 07:32 | XMS_ITS | Continuity of Care Document ---
Author Name Unknown Organization [facility] Address [address] [place] [address]- Care Team Providers Care Asparagus Cutter Name Role Phone Mike De Luna MD Primary Care Physician Encounter [facility] Date(s): 10/25/20 - 11/24/20 [facility] Care [address] [place] [address] Allergies, Adverse Reactions, Alerts Substance Reaction Severity Status amoxicillin Active Immunizations Given and Recorded Vaccine Date Status Refusal Reason SARS-CoV-2 (COVID-19) mRNA-1273 vaccine 10/22/20 G iven SARS-CoV-2 (COVID-19) mRNA-1273 vaccine 09/24/20 G iven tetanus/diphtheria/pertussis, acel(Tdap) 1 08/20/19 Given pneumococcal 23-valent vaccine 2 08/20/19 Given pneumococcal 13-valent vaccine 07/28/14 Recorded 1Result Comment: [facility]-[id number] 2Result Comment: [facility]-[id number] Medications Caltrate 600 + D By Mouth, [...]
--- OUTSIDE RECORDS SUMMARY | 2022-12-03 07:32 | XMS_ITS | Continuity of Care Document ---
Author Name Unknown Organization [facility] Address [address] [place] [address]- Care Team Providers Care Wire Welder Name Role Phone Mike De Luna MD Primary Care Physician [place] [facility] [place] 09/[place]19 - 10/01/19 [facility] Adult [address] [place] [address]- [facility] Attending Physician: Mike De Luna MD Allergies, Adverse Reactions, Alerts Substance Reaction Severity Status amoxicillin Active Immunizations Given and Recorded Vaccine Date Status Refusal Reason tetanus/diphtheria/pertussis, acel(Tdap) 1 08/20/19 Given pneumococcal 23-valent vaccine 2 08/20/19 Given pneumococcal 13-valent vaccine 07/28/14 Recorded 1Result Comment: [facility]-[id number] 2Result Comment: [facility]-[id number] Medications Caltrate 600 + D By Mouth, [...] bilateral(Confirmed) Active Osteoporosis(Confirmed) Active Tobacco abuse(Confirmed) Active Vital Signs Most recent to oldest [Reference Range]: 1 Height 166.1 cm (09/24/19 1:54 PM) Weight 59.7 kg (09/24/19 1:54 PM) Oxygen Saturation [94-100 %] 98 % (09/24/19 1:54 PM) Pulse Rate [55-90 bpm] 84 bpm (09/24/19 1:54 PM) Body Mass Index [18.5-24.99] 21.64 (09/24/19 1:54 PM) Blood Pressure [90-138/55-84 mm Hg] 144/ 82mm Hg *H* (09/24/19 1:54 PM) Mode of Delivery (Oxygen) Room air (09/24/19 1:54 PM) Blood pressure sites Arm, left (09/24/19 1:54 PM) Weight Obtained Via Standing scale (09/24/19 1:54 PM) Social History Social History Type Response Smoking Status 10 or more cigarette s (1/2 pack or more)/day in last 30 days entered on: 08/20/19 Sex
--- OUTSIDE RECORDS SUMMARY | 2022-12-03 07:32 | XMS_ITS | Continuity of Care Document ---
Author Name Unknown Organization [facility] Address [address] [facility], [facility] [address] [place] [address]- Care Team Providers Care Tour Operator Name Role Phone Carri Allred MD Primary Care Physician [phone] Encounter 09/15/19 - 09/22/19 [facility] [address], [facility] [address] [place] [address]- [phone] Attending Physician: Carri Allred MD Admitting Physician: Carri Allred MD Referring Physician: Carri Allred MD Allergies, Adverse Reactions, Alerts Substance Reaction Severity Status amoxicillin Active Immunizations Given and Recorded Vaccine Date Status Refusal Reason tetanus/diphtheria/pertussis, acel(Tdap) 1 08/20/19 Given pneumococcal 23-valent vaccine 2 08/20/19 Given pneumococcal 13-valent vaccine 07/28/14 Recorded 1Result Comment: [facility]-[id number] 2Result Comment: [facility]-[id number] Medications Caltrate 600 + D By Mouth, [...] bilateral(Confirmed) Active Osteoporosis(Confirmed) Active Tobacco abuse(Confirmed) Active Results Radiology Reports * Exam Date Time Procedure Performing Provider Status 09/15/19 1:57 PM Dexa Bone Density (Axial) Salma Kimble nne; Jose (Verified) Notes: (Dexa Bone Density (Axial)) Reason For Exam: Osteopenia RESULT: DEXA BONE DENSITY (AXIAL) Bone Density Report Name: MAMIE DEVINE Age: 69 Sex: Female Ethnicity: White Date of : 1950 Indication: POSTMENOPAUSAL. Referring Provider: CARRI ALLRED MD Study: Bone densitometry was performed. Exam Date: September 15, 2019 Accession number: [id number] Bone Density: Region BMD T-score Z-score Classification AP Spine (L1, L2) 0.727 -2.3 -0.2 Osteopenia Femoral Neck (Right) 0.615 -2.1 -0.2 Osteopenia Total Hip (Right) 0.679 -2.2 -0.6 Osteopenia World Health Organization criteria for BMD impression classify patients as: Normal (T-score at or above -1.0), Osteopenia (T-score between -1.0 and -2.5), or Osteoporosis (T-score at or below -2.5). 10-year Fracture Risk: FRAX not reported because: Some T-score at or below -2.5 Clinical Information Provided by Patient: Smokes Has used the following medications: Vitamin D, Calcium Has the following medical conditions: Hysterectomy Patient maximum height was 67.0 Menopause Age: 50 Onset of menses at age 11.5 Number of children 0 Impression: The patient has osteopenia as determined by WHO criteria. Based on the results of the patient???s bone density assessment, the risk of future fracture increases approximately two fold for each 1.0 SD decrease in T-score. However, low BMD is not the only risk factor for a future fragility fracture. Other clinical risk factors for osteoporotic fracture should be considered in ascertaining this patient???s future fracture risk including the patient???s age, previous osteoporotic (fragility) fracture, estrogen deficiency/hypogonadism, risk of falling, use of medications implicated in bone loss (glucocorticoids), family history of osteoporotic fracture, diseases and conditions associated with bone loss, low body weight, smoking, high bone turnover, etc. Combining low BMD and other clinical risk factors result in a more precise assessment of future fracture risk. Secondary causes for osteoporosis, such as osteomalacia, other metabolic bone disorders, and diseases and conditions that may contribute to accelerated bone loss may have to be considered depending on the clinical situation. A repeat bone density assessment should be considered in two years. Reported by: Eduardo Ledbetter MD on 09/15/2019 4:52:00 PM. Dictated By: Eduardo Ledbetter MD Dictated Date/Time: 09/15/19 4:52 pm Reviewed By: Eduardo Ledbetter MD Signed By: Eduardo Ledbetter MD Signed Date/Time: 09/15/19 4:52 pm Transcribed By: JUAN Transcribed Date/Time: 09/15/19 4:52 pm Social History Social History Type Response Smoking Status 10 or more cigarette s (1/2 pack or more)/day in last 30 days entered on: 08/20/19 Sex
--- OUTSIDE RECORDS SUMMARY | 2022-12-03 07:32 | XMS_ITS | Continuity of Care Document ---
Author Name Unknown Organization [facility] Address [address] [place] [address]- Care Team Providers Care Talent Advisor Name Role Phone Mike De Luna MD Primary Care Physician [phone] Encounter [facility] Date(s): 11/26/19 - 12/26/19 [facility] Adult [address] [place] [address]- [facility] Attending Physician: Admtr, Ar8 Admitting Physician: Admtr, Ar8 Referring Physician: Admtr, Ar8 Allergies, Adverse Reactions, Alerts Substance Reaction Severity Status amoxicillin Active Immunizations Given and Recorded Vaccine Date Status Refusal Reason tetanus/diphtheria/pertussis, acel(Tdap) 1 08/20/19 Given pneumococcal 23-valent vaccine 2 08/20/19 Given pneumococcal 13-valent vaccine 07/28/14 Recorded 1Result Comment: [facility]-[id number] 2Result Comment: [facility]-[id number] Medications Caltrate 600 + D By Mouth, [...]
--- OUTSIDE RECORDS SUMMARY | 2022-12-03 07:32 | XMS_ITS | Continuity of Care Document ---
Author Name Unknown Organization [facility] Address [address] [place] [address]- Care Team Providers Care Cardiology Consultant Name Role Phone Annamarie GATES, Mike Zamora Primary Care Physician [place] [facility] [place]20 - 07/29/20 [facility] [address] [place] [address]- Attending Physician: Rommel Blum Admitting Physician: Rommel Blum Referring Physician: Rommel Blum Allergies, Adverse Reactions, Alerts Substance Reaction Severity Status amoxicillin Active Immunizations Given and Recorded Vaccine Date Status Refusal Reason tetanus/diphtheria/pertussis, acel(Tdap) 1 08/20/19 Given pneumococcal 23-valent vaccine 2 08/20/19 Given pneumococcal 13-valent vaccine 07/28/14 Recorded 1Result Comment: [facility]-[id number] 2Result Comment: [facility]-[id number] Medications Caltrate 600 + D By Mouth, [...]
--- OUTSIDE RECORDS SUMMARY | 2022-12-03 07:32 | XMS_ITS | Continuity of Care Document ---
Author Name Unknown Organization [facility] Address [address] [place], [place] [address]josh landers, [address] [place] [address]- Care Team Providers Care Director Of Public Works Name Role Phone Annamarie GATES, Mike Zamora Primary Care Physician Encounter [facility] [place] Date(s): 06/26/20 - 07/26/20 [facility] Thoracic Surgery [address] [place] [address] Drive, [address] [place], [place] [address] Attending Physician: Rommel Blum Admitting Physician: Rommel Blum Referring Physician: AdmRommel kaur Allergies, Adverse Reactions, Alerts Substance Reaction Severity Status amoxicillin Active Immunizations Given and Recorded Vaccine Date Status Refusal Reason tetanus/diphtheria/pertussis, acel(Tdap) 1 08/20/19 Given pneumococcal 23-valent vaccine 2 08/20/19 Given pneumococcal 13-valent vaccine 07/28/14 Recorded 1Result Comment: [facility]-[id number] 2Result Comment: [facility]-[id number] Medications Caltrate 600 + D By Mouth, [...]
--- OUTSIDE RECORDS SUMMARY | 2022-12-03 07:32 | XMS_ITS | Continuity of Care Document ---
Author Name Unknown Organization [facility] Address [address] [place] [address] [address], [address] [place] [address]- Care Team Providers Care Health Aide Name Role Phone Mike De Luna MD Primary Care Physician [facility]counter [facility] Date(s): 10/29/19 - 11/05/19 [facility] Thoracic Surgery [address] [place] [address], [address] [place] [address]- [facility] Attending Physician: Marya Cason MD Referring Physician: Mike De Luna MD Allergies, Adverse Reactions, Alerts Substance Reaction Severity Status amoxicillin Active Immunizations Given and Recorded Vaccine Date Status Refusal Reason tetanus/diphtheria/pertussis, acel(Tdap) 1 08/20/19 Given pneumococcal 23-valent vaccine 2 08/20/19 Given pneumococcal 13-valent vaccine 07/28/14 Recorded 1Result Comment: [facility]-[id number] 2Result Comment: [facility]-[id number] Medications Caltrate 600 + D By Mouth, [...] oldest [Reference Range]: 1 Height 166.1 cm (10/29/19 2:35 PM) Weight 60 kg (10/29/19 2:35 PM) Oxygen Saturation [94-100 %] 97 % (10/29/19 2:35 PM) Pulse Rate [55-90 bpm] 89 bpm (10/29/19 2:35 PM) Body Mass Index [18.5-24.99] 21.75 (10/29/19 2:35 PM) Blood Pressure [90-138/55-84 mm Hg] 142/ 86mm Hg *H* (10/29/19 2:35 PM) Temperature [96.8-100.4 DegF] 99.2 DegF (10/29/19 2:35 PM) Mode of Delivery (Oxygen) Room air (10/29/19 2:35 PM) Blood pressure sites Arm, right (10/29/19 2:35 PM) Temperature Route Temporal (10/29/19 2:35 PM) Weight Obtained Via Standing scale (10/29/19 2:35 PM) Social History Social History Type Response Smoking Status 10 or more cigarette s (1/2 pack or more)/day in last 30 days entered on: 08/20/19 Sex
--- OUTSIDE RECORDS SUMMARY | 2022-12-03 07:32 | XMS_ITS | Continuity of Care Document ---
Author Name Unknown Organization [facility] Address [address] [place] [address]- Care Team Providers Care Buffer Chrome Name Role Phone Annamarie GATES, Mike Zamora Primary Care Physician [phone] [place] [facility] [place]20 - 04/14/20 [facility] [address] [place] [address]- [facility] Attending Physician: Rommel Blum Admitting Physician: Rommel Blum Referring Physician: Rommel Blum Allergies, Adverse Reactions, Alerts Substance Reaction Severity Status amoxicillin Active Immunizations Given and Recorded Vaccine Date Status Refusal Reason tetanus/diphtheria/pertussis, acel(Tdap) 1 08/20/19 Given pneumococcal 23-valent vaccine 2 08/20/19 Given pneumococcal 13-valent vaccine 07/28/14 Recorded 1Result Comment: [facility]-[id number] 2Result Comment: [facility]-[id number] Medications Caltrate 600 + D By Mouth, [...]
--- OUTSIDE RECORDS SUMMARY | 2022-12-03 07:32 | XMS_ITS | Continuity of Care Document ---
Author Name Unknown Organization [facility] Address [address] [place] [address]- Care Team Providers Care Residential Program Manager Name Role Phone Not on Staff, PCP Primary Care Physician Unavail able [facility]counter [facility] Date(s): 04/17/21 - 05/17/21 [facility] [address] [place] [address] Allergies, Adverse Reactions, Alerts Substance Reaction Severity Status amoxicillin Active Immunizations Given and Recorded Vaccine Date Status Refusal Reason SARS-CoV-2 (COVID-19) mRNA-1273 vaccine 10/22/20 G iven SARS-CoV-2 (COVID-19) mRNA-1273 vaccine 09/24/20 G iven tetanus/diphtheria/pertussis, acel(Tdap) 1 08/20/19 Given pneumococcal 23-valent vaccine 2 08/20/19 Given pneumococcal 13-valent vaccine 07/28/14 Recorded 1Result Comment: [facility]-[id number] 2Result Comment: [facility]-[id number] Medications Caltrate 600 + D By Mouth, [...]
--- OUTSIDE RECORDS SUMMARY | 2022-12-03 07:32 | XMS_ITS | Continuity of Care Document ---
Author Name Unknown Organization [facility] Address [address] [place] [address]- Care Team Providers Care Fire Extinguisher Installer Name Role Phone Not on Staff, PCP Primary Care Physician Unavail able Encounter [facility] [place] Date(s): 03/09/21 - 06/09/21 [facility] [address] [place] [address] Discharge Disposition: A-D/C Home Attending Physician: Bobby Colorado MD Admitting Physician: Bobby Colorado MD Referring Physician: Chirsty Moralez MD Allergies, Adverse Reactions, Alerts Substance Reaction Severity Status amoxicillin Active Immunizations Given and Recorded Vaccine Date Status Refusal Reason SARS-CoV-2 (COVID-19) mRNA-1273 vaccine 10/22/20 G iven SARS-CoV-2 (COVID-19) mRNA-1273 vaccine 09/24/20 G iven tetanus/diphtheria/pertussis, acel(Tdap) 1 08/20/19 Given pneumococcal 23-valent vaccine 2 08/20/19 Given pneumococcal 13-valent vaccine 07/28/14 Recorded 1Result Comment: [facility]-[id number] 2Result Comment: [facility]-[id number] Medications Caltrate 600 + D By Mouth, [...]
--- OUTSIDE RECORDS SUMMARY | 2022-12-03 07:32 | XMS_ITS | Continuity of Care Document ---
Author Name Unknown Organization [facility] Address [address] [place] [address]- Care Team Providers Care Rfid Systems Engineer Name Role Phone Mike De Luna MD Primary Care Physician En[place] [facility] [place] Date(s): 12/28/19 - 01/04/20 [facility] Adult [address] [place] [address]- [facility] Attending Physician: Mike De Luna MD Allergies, Adverse Reactions, Alerts Substance Reaction Severity Status amoxicillin Active Immunizations Given and Recorded Vaccine Date Status Refusal Reason tetanus/diphtheria/pertussis, acel(Tdap) 1 08/20/19 Given pneumococcal 23-valent vaccine 2 08/20/19 Given pneumococcal 13-valent vaccine 07/28/14 Recorded 1Result Comment: [facility]-[id number] 2Result Comment: [facility]-[id number] Medications Caltrate 600 + D By Mouth, [...] oldest [Reference Range]: 1 Height 166.1 cm (12/28/19 7:57 AM) Social History Social History Type Response Smoking Status 10 or more cigarette s (1/2 pack or more)/day in last 30 days entered on: 08/20/19 Sex
--- OUTSIDE RECORDS SUMMARY | 2022-12-03 07:32 | XMS_ITS | Continuity of Care Document ---
Author Name Unknown Organization [facility] Address [address] [place] [address] [address], [address] [place] [address]- Care Team Providers Care Rod Machine Operator Name Role Phone Annamarie GATES, Mike Zamora Primary Care Physician Encounter [facility] Date(s): 12/06/19 - 12/13/19 [facility] Thoracic Surgery [address] [place] [address], [address] [place] [address]- [facility] Attending Physician: Marya Cason MD Allergies, Adverse Reactions, Alerts Substance Reaction Severity Status amoxicillin Active Immunizations Given and Recorded Vaccine Date Status Refusal Reason tetanus/diphtheria/pertussis, acel(Tdap) 1 08/20/19 Given pneumococcal 23-valent vaccine 2 08/20/19 Given pneumococcal 13-valent vaccine 07/28/14 Recorded 1Result Comment: [facility]-[id number] 2Result Comment: [facility]-[id number] Medications Caltrate 600 + D By Mouth, [...]
--- OUTSIDE RECORDS SUMMARY | 2022-12-03 07:32 | XMS_ITS | Continuity of Care Document ---
Author Name Unknown Organization [facility] Address [address] [place] [address]- Care Team Providers Care Client Engagement Specialist Name Role Phone Mike De Luna MD Primary Care Physician [phone] Encounter [facility] [place] Date(s): 12/14/20 - 03/03/21 [facility] [address] [place] [address]- Discharge Disposition: A-D/C Home Attending Physician: Bobby [...] pneumococcal 13-valent vaccine 07/28/14 Recorded 1Result Comment: [facility]-[id number] 2Result Comment: [facility]-[id number] Medications Caltrate 600 + D By Mouth, [...]
--- OUTSIDE RECORDS SUMMARY | 2022-12-03 07:32 | XMS_ITS | Continuity of Care Document ---
Author Name Unknown Organization [facility] Address [address] [place] [address]- Care Team Providers Care Ict Educator Name Role Phone Mike De Luna MD Primary Care Physician [place] [facility] 10[place]20 - 11/24/20 [facility] [address] [place] [address] Allergies, Adverse Reactions, Alerts Substance Reaction Severity Status amoxicillin Active Immunizations Given and Recorded Vaccine Date Status Refusal Reason SARS-CoV-2 (COVID-19) mRNA-1273 vaccine 10/22/20 G iven SARS-CoV-2 (COVID-19) mRNA-1273 vaccine 09/24/20 G iven tetanus/diphtheria/pertussis, acel(Tdap) 1 08/20/19 Given pneumococcal 23-valent vaccine 2 08/20/19 Given pneumococcal 13-valent vaccine 07/28/14 Recorded 1Result Comment: [facility]-[id number] 2Result Comment: [facility]-[id number] Medications Caltrate 600 + D By Mouth, [...]
--- OUTSIDE RECORDS SUMMARY | 2022-12-03 07:32 | XMS_ITS | Continuity of Care Document ---
Author Name Unknown Organization [facility] Address [address] [place], [place] [address]josh landers, [address] [place] [address]- Care Team Providers Care Legal Billing Coordinator Name Role Phone Annamarie GATES, Mike Zamora Primary Care Physician [phone] [place] [facility] [place]): [place] 04/09/20 [facility] Thoracic Surgery [address] [place] [address] Drive, [address] [place] [address]- [facility] Attending Physician: Rommel Blum Admitting Physician: Rommel Blum Referring Physician: AdmRommel kaur Allergies, Adverse Reactions, Alerts Substance Reaction Severity Status amoxicillin Active Immunizations Given and Recorded Vaccine Date Status Refusal Reason tetanus/diphtheria/pertussis, acel(Tdap) 1 08/20/19 Given pneumococcal 23-valent vaccine 2 08/20/19 Given pneumococcal 13-valent vaccine 07/28/14 Recorded 1Result Comment: [facility]-[id number] 2Result Comment: [facility]-[id number] Medications Caltrate 600 + D By Mouth, [...] of upper lobe of righ t lung(Confirmed) 2/27/20 Active Left upper lobe pulmonary nodule(Confirmed) 09/23/19 Active Osteoarthritis of knees, bilateral(Confirmed) Active Osteoporosis(Confirmed) Active Social History Social History Type Response Smoking Status 10 or more cigarette s (1/2 pack or more)/day in last 30 days entered on: 08/20/19 Sex
--- OUTSIDE RECORDS SUMMARY | 2022-12-03 07:32 | XMS_ITS | Continuity of Care Document ---
Author Name Unknown Organization [facility] Address [address] [place] [address]- Care Team Providers Care Leather Repairer Name Role Phone Mike De Luna MD Primary Care Physician [phone] Encounter [facility] [place] Date(s): 08/20/19 - 08/27/19 [facility] [address] [place] [address]- [facility] Encounter Diagnosis Hypercholesterolemia(Discharge Diagnosis) - 08/20/19 Osteoporosis(Discharge Diagnosis) - 08/20/19 Tobacco abuse(Discharge Diagnosis) - 08/20/19 Attending Physician: Mike De Luna MD Allergies, Adverse Reactions, Alerts Substance Reaction Severity Status amoxicillin Active Immunizations Given and Recorded Vaccine Date Status Refusal Reason tetanus/diphtheria/pertussis, acel(Tdap) 1 08/20/19 Given pneumococcal 23-valent vaccine 2 08/20/19 Given pneumococcal 13-valent vaccine 07/28/14 Recorded 1Result Comment: [facility]-[id number] 2Result Comment: [facility]-[id number] Medications Caltrate 600 + D By Mouth, 2 times a day, 0 Refills, Maintenance, 08/20/19 13:34:00 EST Start Date: 08/20/19 Status: Ordered Fosamax 70 mg oral tablet 1 tablet = 70 mg, By Mouth, Every week, # 12 tablet, 3 Refills, Maintenance, 08/20/19 14:11:00 EST,Tablet, [facility]/pharmacy [facility][id number], 166.1, cm, 08/20/19 13:59:00 EST, Height [...] bilateral(Confirmed) Active Osteoporosis(Confirmed) Active Tobacco abuse(Confirmed) Active Diagnosis Diagnosis Type Effective Dates Health Status Clinical Service Informant Hypercholesterolemia Discharge Diagnosis 08/20/19 Osteoporosis Discharge Diagnosis 08/20/19 Tobacco abuse Discharge Diagnosis 08/20/19 Procedures Procedure Date Related Diagnosis Body Site Status Appendectomy; Completed Arthroscopic knee operation Completed Hemorrhoidectomy Complete d Hysterectomy Completed Tonsillectomy Completed Vital Signs Most recent to oldest [Reference Range]: 1 2 Height 166.1 cm (08/20/19 1:59 PM) 166.1 cm (08/20/19 1:23 PM) Weight 59.0 kg (08/20/19 1:23 PM) Oxygen Saturation [94-100 %] 98 % (08/20/19 1:23 PM) Pulse Rate [55-90 bpm] 84 bpm (08/20/19 1:23 PM) Body Mass Index [18.5-24.99] 21.39 (08/20/19 1:23 PM) Blood Pressure [90-138/55-84 mm Hg] 138/ 80mm Hg (08/20/19 1:59 PM) 144/80mm Hg *H* (08/20/19 1:23 PM) Respiratory Rate [16-30 br/min] 12 br/mi n *L* (08/20/19 1:23 PM) Temperature [96.8-100.4 DegF] 98.7 DegF (08/20/19 1:23 PM) Mode of Delivery (Oxygen) Room air (08/20/19 1:23 PM) Blood pressure sites Arm, left (08/20/19 1:23 PM) Temperature Route Oral (08/20/19 1:23 PM) Weight Obtained Via Standing scale (08/20/19 1:23 PM) Social History Social History Type Response Smoking Status 10 or more cigarette s (1/2 pack or more)/day in last 30 days entered on: 08/20/19 Sex
--- OUTSIDE RECORDS SUMMARY | 2022-12-03 07:32 | XMS_ITS | Continuity of Care Document ---
Author Name Unknown Organization [facility] Address [address] [place] [address] [address] [place] [address]- Care Team Providers Care Stock Chaser Name Role Phone Mike De Luna MD Primary Care Physician Encounter [facility] [place] Date(s): 08/23/19 - 09/02/19 [facility] [address] [place] [address] [place] [address]- [facility] Attending Physician: Admtr, Ar8 Admitting Physician: Admtr, Ar8 Referring Physician: Admtr, Ar8 Allergies, Adverse Reactions, Alerts Substance Reaction Severity Status amoxicillin Active Immunizations Given and Recorded Vaccine Date Status Refusal Reason tetanus/diphtheria/pertussis, acel(Tdap) 1 08/20/19 Given pneumococcal 23-valent vaccine 2 08/20/19 Given pneumococcal 13-valent vaccine 07/28/14 Recorded 1Result Comment: [facility]-[id number] 2Result Comment: [facility]-[id number] Medications Caltrate 600 + D By Mouth, [...]
[2022-12-03 08:18] VITALS: BMI 20.4
[2022-12-03 08:35] VITALS: BP 162/72; PULSE 58; RESP 16; TEMP 36.1; O2SAT 98
[2022-12-03] MEDS: Lactated Ringers 1,000 ML 100 ML IVCONT (08:48)
--- NOTE | 2022-12-03 09:31 | P.HPSUR_ITS ---
Pre-Procedural Eval Section A Date of Service: 12/03/22 Section B Chief Complaint: Encounter for screening for malignant neoplasm Details of Present Illness: see H&P no changes Relevant Family History (Specify if Yes): No Relevant Social History: None Present Medications: see Short Stay Collaborative assessment Medical History: No relevant PMH History of Previous Operations: No relevant previous surgery Allergies: Allergies Allergy/AdvReac Type Severity Reaction Status Date / Time amoxicillin Allergy Intermediate ? Verified 12/03/22 08:11 Review of Systems Sugical H&P ROS: Negative: Constitution, Cardiovascular, Respiratory, Neur ological, Psychiatric, Hem-Onc, Allergic/Immunologic, Gastrointestinal, Genitourinary, Musculoskeletal, Integumentary, Endocrine and Eyes/Ears/Nose/Throat Exam Surgical H&P Exam: Normal: HEENT, Normal: Heart, Normal: Lungs, Normal: Extremities, Normal: Abdomen, Normal: Skin and Normal: Neurological Plan Diagnosis/Plan: Unchanged I have reviewed the history and physical and performed a pertinent physical examination on my patient. No changes have occurred unless specified. Time Spent With Patient Time: Total time managing care of this patient today ____ minutes.
[2022-12-03 11:01] VITALS: BP 123/69; PULSE 75; RESP 16; TEMP 36.3; O2SAT 100
--- NOTE | 2022-12-03 11:02 | P.BOP_ITS ---
Brief Operative Note Date of Service: 12/03/22 Pre-op diagnosis: screening Post-op diagnosis: same Procedure: colonoscopy Surgeon: Rudy Young Anesthesia: MAC Was an Straightedge Machine Operator Helper used for this Procedure?: No Estimated blood loss (mL): 2 Pathology: other Condition: stable Disposition: PACU
[2022-12-03 11:16] VITALS: BP 165/81; PULSE 56; RESP 16; TEMP 36.2; O2SAT 98
--- NOTE | 2022-12-03 11:57 | OP_ITS ---
DATE OF SERVICE: 12/03/2022 SURGEON: Rudy Young MD INDICATIONS: Colon cancer screening. PREOPERATIVE DIAGNOSIS: POSTOPERATIVE DIAGNOSIS: PROCEDURE PERFORMED: Colonoscopy to the terminal ileum with biopsy, snare polypectomy, cauterization of colon polyps, and control of hemorrhage. ESTIMATED BLOOD LOSS: COMPLICATIONS: ANESTHESIA: Monitored anesthesia care. ASSISTANTS: SPECIMENS: DESCRIPTION OF PROCEDURE: A history and physical was performed. The risks and benefits of the procedure were explained to the patient. Informed consent was obtained. The patient was placed in the left lateral decubitus position. The Olympus pediatric video colonoscope was introduced into the rectum and advanced to the cecum. The cecum was identified by transillumination, palpation, and identification of ileocecal valve. Examination was performed. The scope was removed. She tolerated the procedure well and was returned to the recovery area in stable condition. FINDINGS: The terminal ileum was not examined. Multiple colonic polyps were present. An 8 mm polyp just below the ileocecal valve was removed with a snare and recovered via suction. At 70 cm was a less than 5 mm polyp, which was removed with a snare. A 3rd polyp at 60 cm was also snared measuring less than 10 mm. At 50 cm was a 2.5 x 1.5, sessile flat polyp, which was piecemeal resected, biopsied, and cauterized. 3 cc of Kimmie ink was used to josee the location for re-evaluation. At 20 cm was a 10 mm polyp, which was removed with a snare. There was post polypectomy bleeding, which was controlled with cautery of the base of the polyp and application of a single hemostatic clip. A second polyp at this location was removed with a biopsy forceps and measured less than 5 mm. In the rectum was a 6 mm polyp, which was removed with a snare. There was moderate sigmoid diverticulosis, and the sigmoid was quite tortuous. There was some liquid stool coating the mucosa limiting the sensitivity examination for detection of small polyps. This was washed and suctioned. Retroflexed examination showed small internal hemorrhoids. The procedure was extended and difficult due to the multiple polypectomies that were required. IMPRESSION: 1. Colon polyps. 2. Diverticulosis. RECOMMENDATION: Follow up the biopsy results. MD KRIS Lo/MARC / [id number]
== END 2022-12-03 12:19 | disposition home or self-care (01) ==
PROVIDERS: PCP Internal Medicine; Visit Provider Internal Medicine Gastroenterology
PROC: 0DJD8ZZ Inspection of Lower Intestinal Tract, Via Natural or Artificial Opening Endoscopic (ICD-10-PCS; CPT 45378; principal; 2022-12-03 08:50)
DX: Z12.11 Encounter for screening for malignant neoplasm of colon (principal); C18.7 Malignant neoplasm of sigmoid colon; D12.0 Benign neoplasm of cecum; D12.4 Benign neoplasm of descending colon; D12.8 Benign neoplasm of rectum; K57.30 Diverticulosis of large intestine without perforation or abscess without bleeding; K64.8 Other hemorrhoids; K59.09 Other constipation; M81.0 Age-related osteoporosis without current pathological fracture; M19.90 Unspecified osteoarthritis, unspecified site; E78.00 Pure hypercholesterolemia, unspecified; J30.9 Allergic rhinitis, unspecified; Z79.1 Long term (current) use of non-steroidal anti-inflammatories (NSAID); Z79.899 Other long term (current) drug therapy; Z88.1 Allergy status to other antibiotic agents; F17.210 Nicotine dependence, cigarettes, uncomplicated; Z90.710 Acquired absence of both cervix and uterus
CPT/HCPCS: 45385; 45380; 45381; 81210; 81275; 81276; 81311; 81403; 88305; 88341; 88342

== ENCOUNTER → 2022-12-12 07:53 | Outpatient (BNV) | payer MEDICARE, OTHER, SELFPAY | PROVIDERS: PCP Internal Medicine; Visit Provider Internal Medicine | DX: Z85.038 Personal history of other malignant neoplasm of large intestine (principal); Z90.49 Acquired absence of other specified parts of digestive tract; Z80.0 Family history of malignant neoplasm of digestive organs | CPT/HCPCS: 99204; 99213; 99214 ==

== ENCOUNTER 2022-12-18 10:03 | Outpatient (REF) | payer MEDICARE, OTHER, SELFPAY ==
[2022-12-18 13:36] LABS: MANUAL DIFF FLAG NO
[2022-12-18 13:44] LABS: Basophils Percent Auto 0.7 % (0-2); Eosinophils Absolute Auto 0.2 X10*3/uL (0.0-0.4); Hematocrit 38.4 % (37.0-47.0); Imm Gran Abs Auto 0.01 X10*3/uL (0.00-0.03); Imm Gran Pct Auto 0.2 % (0.0-0.4); Lymphocytes Percent Auto 16.2 % (20-40); Mean Corpuscular HGB Conc 33.9 g/dl (31.0-35.0); Mean Corpuscular Hemoglobin 31.4 pg (27.0-33.0); Mean Corpuscular Volume 92.8 fL (80.0-98.0); Mean Platelet Volume 9.6 fL (9.4-12.3); Monocytes Absolute Auto 0.4 X10*3/uL (0.1-1.2); Monocytes Percent Auto 6.5 % (2-11); Neutrophils Absolute Auto 4.4 x10*3/uL (2.0-8.3); Neutrophils Percent Auto 73.4 % (45-73); Platelet Count 318 X10*3/uL (160-400); Red Blood Count 4.14 X10*6/uL (4.20-5.50); Red Cell Distribution Width 13.1 % (11.0-16.0)
[2022-12-18 14:08] LABS: Alanine Aminotransferase 13 U/L (0-31); Albumin Level 4.1 g/dL (3.5-5.0); Alkaline Phosphatase 50 U/L (39-117); Aspartate Amino Transferase 20 U/L (5-31); Bilirubin Direct 0.1 mg/dL (0.0-0.5); Bilirubin Total 0.6 mg/dL (0.0-1.0); Blood Urea Nitrogen 6 mg/dL (9-16); Estimated Glomerular Filt Rate > 60; Total Protein 6.3 g/dL (6.5-8.0)
== END 2022-12-18 10:04 | disposition home or self-care (01) ==
LOC: HO.10HDL 10:03
PROVIDERS: Visit Provider Internal Medicine Gastroenterology
DX: C18.9 Malignant neoplasm of colon, unspecified (principal)
CPT/HCPCS: 36415; 80076; 82378; 82565; 84520; 85025

== ENCOUNTER → 2022-12-19 14:18 | Outpatient (BNVA) | payer MEDICARE, OTHER, SELFPAY | PROVIDERS: PCP Internal Medicine; Referring Provider Internal Medicine Gastroenterology; Visit Provider Surgery | DX: C18.9 Malignant neoplasm of colon, unspecified (principal) | CPT/HCPCS: 99202 ==

== ENCOUNTER 2023-01-15 08:11 | Outpatient (REF) | payer MEDICARE, OTHER, SELFPAY ==
--- NOTE | ~2023-01-15 | CT_ITS ---
EXAMINATION: CT ABDOMEN AND PELVIS WITH CONTRAST CLINICAL INFORMATION: Malignant neoplasm of colon COMPARISON: None available. TECHNIQUE: Multidetector volumetric images were obtained from the superior aspect of the liver through the pubic symphysis following administration 85 mL of Omnipaque 350 intravenous contrast. Sagittal and coronal reformatted images were obtained on the technologist's workstation. Oral contrast: No This CT examination was performed using dose optimization techniques as appropriate, variously including the following: *Automated exposure control *Adjustment of mA and/or kV according to patient size (this includes techniques or standardized protocols for targeted exams where dose is matched to indication/reason for exam; i.e. extremities or head) *Use of iterative reconstruction technique DLP: 204.6 mGy-cm FINDINGS: LUNG BASES: The visualized lung bases are unremarkable. Please see report of chest CT performed same day. LIVER, GALLBLADDER, AND BILIARY TREE: The liver is normal in size, shape, and attenuation. Tiny water density cyst is present in the right lobe of the liver just beneath the hemidiaphragm. No worrisome solid focal hepatic lesions are seen to suggest metastatic disease. No biliary ductal dilatation is present. The gallbladder is contracted but otherwise unremarkable with no evidence of radiopaque gallstones, gallbladder wall thickening, or obvious pericholecystic inflammatory changes. PANCREAS: Unremarkable. SPLEEN: Unremarkable. ADRENAL GLANDS: There is mild thickening of the left adrenal gland. There is some mild inflammatory change around this area. A para-aortic lymph node measuring about 0.9 cm is present between the aorta and the adrenal (3:20). The right adrenal gland is unremarkable. KIDNEYS AND URETERS: The kidneys are normal in size, shape, and attenuation. No hydronephrosis, hydroureter, or calculi seen. Multiple benign Bosniak class I renal cysts are noted, the largest measuring 1.2 cm on the left which require no additional imaging or follow-up. No solid renal masses are seen. BLADDER: Unremarkable. GASTROINTESTINAL TRACT: Extensive diverticular changes are present in the sigmoid without evidence of diverticulitis. There is a question of a soft tissue mass seen in the proximal rectum measuring about 1.9 cm x 3.4 cm x at least 4 cm. This may be stool in the rectum. I would assume the site of the patient's primary malignancy is known. Please correlate with digital rectal exam and endoscopy. There are some abnormally thickened loops of small bowel seen in the left abdomen/pelvis (3:47), Small and large bowel are otherwise unremarkable. The appendix is not seen with certainty but there is no evidence of appendicitis. ABDOMINAL WALL: No significant hernia is appreciated. LYMPH NODES: Normal. VASCULAR: Atherosclerotic disease present in the aorta and iliofemoral vessels without aneurysm. PELVIC VISCERA: Unremarkable. OSSEOUS STRUCTURES: Generalized osteopenia and multiple lumbar compression fractures. Kyphoplasty cement is present in L4 and L2. There is a severe compression fracture noted at L1. Degenerative changes are present at all levels. Old healed fracture of the inferior pubic ramus on the left. CT/CT abdomen pelvis w IV con IMPRESSION: 1. No convincing evidence of metastatic disease in the abdomen or pelvis. 2. Soft tissue mass in the rectum as described above. Please correlate with digital rectal exam and endoscopy. 3. Abnormally thickened loops of small bowel in the left abdomen. This could be secondary to enteritis. 4. Thickening of the left adrenal gland with a 0.9 cm para-aortic lymph node. This should be followed on future surveillance exams. 5. Other incidental findings as described above. Fleischner guidelines were followed.
--- NOTE | ~2023-01-15 | CT_ITS ---
EXAMINATION: CT CHEST WITH CONTRAST CLINICAL INFORMATION: Colon cancer COMPARISON: Previous chest x-ray 2008 TECHNIQUE: Multidetector volumetric CT imaging of the chest was obtained after the administration of 65 mL of Omnipaque 350 intravenous contrast without immediate adverse reactions. Axial MIP volume rendering provided. Sagittal and coronal reformatted images were obtained. This CT examination was performed using dose optimization techniques as appropriate, variously including the following: *Automated exposure control *Adjustment of mA and/or kV according to patient size (this includes techniques or standardized protocols for targeted exams where dose is matched to indication/reason for exam; i.e. extremities or head) *Use of iterative reconstruction technique DLP: 66 mGy-cm FINDINGS: LUNGS: Mild emphysema. There are abnormal linear parenchymal densities in both upper lobes. This may represent post infectious or inflammatory scarring. This is a new finding compared to 2008 chest x-ray. There is linear subsegmental atelectasis at the lung bases. No pulmonary nodule. MEDIASTINUM: Upper normal heart size. Upper normal-size thoracic aorta. Mild coronary artery calcification. No pericardial effusion. The thoracic aorta is tortuous as well. Small left thyroid nodule. Based on size and patient age no imaging follow-up recommended. Small mediastinal lymph nodes. No enlarged lymph nodes. PLEURA: There is no pleural effusion. No pleural mass or thickening. AXILLA: Bilateral gynecomastia. No axillary adenopathy. UPPER ABDOMEN: Small 5 mm low-attenuation lesion high in the dome of the liver. This is too small to definitively characterize but may represent a cyst. OSSEOUS STRUCTURES: L1 severe old compression fracture. Post kyphoplasty change of L2. Mild old T9 and T10 compression fractures. CT/CT chest w IV con IMPRESSION: Emphysema. Probable postinfectious or inflammatory scarring in both upper lobes. No pulmonary nodule. Fleischner guidelines were followed.
[2023-01-15] MEDS: iohexoL 350 MG/ML 100 ML INFUS..BTL IV (10:45)
[2023-01-15] MEDS: Barium Sulfate Oral (Mocha) 450 ML ORAL.SUSP 900 ML PO (10:46)
== END 2023-01-15 08:12 | disposition home or self-care (01) ==
LOC: HO.CT 08:11
PROVIDERS: PCP Internal Medicine; Visit Provider Internal Medicine Gastroenterology
DX: C18.9 Malignant neoplasm of colon, unspecified (principal)
CPT/HCPCS: 71260; 74177; Q9967

== ENCOUNTER 2023-02-07 08:17 | Inpatient (IN) | payer MEDICARE, OTHER, SELFPAY ==
[2023-01-31 12:13] VITALS: BP 128/64; PULSE 71; RESP 18; O2SAT 97; BMI 21.9
--- NOTE | 2023-01-31 12:22 | HO.ANESPROP2 ---
Documented by User: Karey Pardo NP 01/31/23 12:55 HPI - Anesthesia Eval Consult details Narrative: 73yo F for Colon Resection Laparoscopic hand Assist,poss open,poss flex sigmoidoscopy No recent illness No CP/SOB with housework/groceries/mowing lawn s/p kyphoplasty. No issue with laying supine PMFSH Active Problems Active Problems: All Active Problems (Updated 01/31/23 @ 12:10 by Génesis Calixto RN) Pubic ramus fracture (Acute) Piriformis muscle pain (Acute) Colon adenocarcinoma (Acute) Past Medical History Medical History (Updated 01/31/23 @ 12:10 by Génesis Calixto RN) Allergic rhinitis Anal fistula Back pain COPD (chronic obstructive pulmonary disease) Elevated cholesterol Emphysema lung Lung cancer Osteoarthritis Osteoporosis Skin cancer (melanoma) Family History Family History Father Mother Colon cancer Family history of problems with anesthesia: No Surgical History Surgical History (Updated 01/31/23 @ 12:09 by Génesis Calixto RN) H/O hemorrhoidectomy H/O: hysterectomy History of meniscectomy of left knee History of surgery Hx of appendectomy Hx of colonoscopy Hx of kyphoplasty Hx of meniscectomy of right knee Hx of tonsillectomy History of Problems with Anesthesia: No Social History Social History Household Members: Spouse Are you a primary medical care manager to a significant other at home: No Do you presently have visiting nurse or other home services: No Alcohol intake: current Alcohol intake frequency: holidays/special occasions only Alcohol type: wine Patient Tobacco Use Status: Current everyday Tobacco user Tobacco use type: Cigarette Cigarettes Per Day: 1 Years Smoked: 60 Patient Interested in Nicotine Replacement: No Use of substances other than those prescribed or required for medical reasons: No Have you been hit, kicked, punched, or otherwise hurt by someone within the past year? If so, by whom?: No Are you DNR?: No Advance Directives Information Provided: Yes (as above noted) Advance Directives on File: No Recently lost weight without trying: No Eating poorly because of decreased appetite: No Nutrition Risks: Surgical patient >75years Poor oral hygiene: No (has fixed bridges) service: No Current occupational status: retired [employer] Allergies Allergy/AdvReac Type Severity Reaction Status Date / Time amoxicillin Allergy Intermediate anaphylaxis Verified 01/31/23 12:02 (CAN ONLY TAKE DOXYCYCLINE-REACTIONS TO MOST) Home Medications Medication Instructions Recorded Confirmed Last Taken Type docusate sodium 100 mg capsule 100 mg PO QPM 12/11/22 01/31/23 Unknown History (Stool Softener) uxorsjkrxbkm-jndabwof-chqewq 1 tab PO QPM 12/12/22 01/31/23 Unknown History tablet (Multivitamin 50 Plus tablet) acetaminophen 500 mg tablet 500 mg PO BID 01/31/23 01/31/23 Unknown History calcium carbonate 600 mg-vitamin 1 tab PO QPM 01/31/23 01/31/23 Unknown History D3 5 mcg (200 unit) tablet garlic 1,000 mg capsule 2,000 mg PO QPM 01/31/23 01/31/23 Unknown History Exam Exam Date and Time: January 31, 2023 1222 Height,Weight and Vital Signs: Vital Signs Pulse Rate 71 01/31/23 12:13 Respiratory Rate 18 01/31/23 12:13 Blood Pressure 128/64 01/31/23 12:13 Pulse Oximetry 97 01/31/23 12:13 Oxygen Delivery Method Room Air 01/31/23 12:13 Height 5 ft 2 in Weight 54.431 kg Airway Mallampati Class: II TM Dist: >3cm Neck ROM: Limited (d/t osteoarthitis) Loose/Missing/Broken Teeth: Yes (Permanent upper and lower bridges) Heart: RRR Lungs: CTAB Assessment and Plan Assessment Anesthesia Assessment: Anesthesia Plan Discussed, Smoking Cess. Discussed and PAT Visit Final Anesthetic Review Family History of Problems with Anesthesia: No History of Problems with Anesthesia: No Documented by User: Priyank Wayne MD 02/07/23 10:07 [facility] Past Medical History Medical History (Updated 01/31/23 @ 12:10 by Génesis Calixto RN) Allergic rhinitis Anal fistula Back pain COPD (chronic obstructive pulmonary disease) Elevated cholesterol Emphysema lung Lung cancer Osteoarthritis Osteoporosis Skin cancer (melanoma) Family History Family History Father Mother Colon cancer Surgical History Surgical History (Updated 01/31/23 @ 12:09 by Génesis Calixto RN) H/O hemorrhoidectomy H/O: hysterectomy History of meniscectomy of left knee History of surgery Hx of appendectomy Hx of colonoscopy Hx of kyphoplasty Hx of meniscectomy of right knee Hx of tonsillectomy Social History Social History Household Members: Spouse Are you a primary medical care manager to a significant other at home: No Do you presently have visiting nurse or other home services: No Alcohol intake: current Alcohol intake frequency: holidays/special occasions only Alcohol type: wine Patient Tobacco Use Status: Current everyday Tobacco user Tobacco use type: Cigarette Cigarettes Per Day: 1 Years Smoked: 60 Patient Interested in Nicotine Replacement: No Use of substances other than those prescribed or required for medical reasons: No Have you been hit, kicked, punched, or otherwise hurt by someone within the past year? If so, by whom?: No Are you DNR?: No Advance Directives Information Provided: Yes (as above noted) Advance Directives on File: No Recently lost weight without trying: No Eating poorly because of decreased appetite: No Nutrition Risks: Surgical patient >75years Poor oral hygiene: No (has fixed bridges) service: No Current occupational status: retired Meds Allergies Allergy/AdvReac Type Severity Reaction Status Date / Time amoxicillin Allergy Intermediate anaphylaxis Verified 01/31/23 12:02 (CAN ONLY TAKE DOXYCYCLINE-REACTIONS TO MOST) Home Medications Medication Instructions Recorded Confirmed Last Taken Type docusate sodium 100 mg capsule 100 mg PO QPM 12/11/22 01/31/23 Unknown History (Stool Softener) ioptuozowubk-zcfenjog-fqtgla 1 tab PO QPM 12/12/22 01/31/23 Unknown History tablet (Multivitamin 50 Plus tablet) acetaminophen 500 mg tablet 500 mg PO BID 01/31/23 01/31/23 Unknown History calcium carbonate 600 mg-vitamin 1 tab PO QPM 01/31/23 01/31/23 Unknown History D3 5 mcg (200 unit) tablet garlic 1,000 mg capsule 2,000 mg PO QPM 01/31/23 01/31/23 Unknown History Exam Airway Neck ROM: Full (d/t osteoarthitis) Assessment and Plan Assessment Anesthesia Assessment: Chart Reviewed Final Anesthetic Review NPO: Yes ASA Class: III Final Preanesthetic Review: No Changes in Pt Med Stat, Meds/Allgs Chart Reviewed, Consent Obtained/Reviewed and Anes Risks/Benef Reviewed Patient Risk: Intermediate Procedure Risk: Intermediate Anesthetic Plan Anesthetic Plan: GA and Agree w/ Assess. and Plan Disposition: Standard PACU
[2023-01-31 14:59] LABS: Anion Gap 14 (12-20); Blood Urea Nitrogen 8 mg/dL (9-16); Calcium 9.8 mg/dL (8.4-10.2); Carbon Dioxide 25 mmol/L (22-29); Chloride 100 mmol/L (96-108); Creatinine Clr Calc Pharmacy 55.7; Estimated Glomerular Filt Rate > 60; Glucose Random 93 mg/dL (60-115); Potassium 3.8 mmol/L (3.3-5.1); Sodium 135 mmol/L (135-145)
[2023-02-07] VITALS (15 sets, daily range): BP systolic 122–142; BP diastolic 48–71; PULSE 58–77; RESP 14–96; TEMP 36.1–36.8; O2SAT 90–99
[2023-02-07] MEDS: Lactated Ringers 1,000 ML 100 ML IVCONT (07:56)
--- OUTSIDE RECORDS SUMMARY | 2023-02-07 08:23 | XMS_ITS ---
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) use of non-steroidal anti-inflammatorie s (NSAID) Z79.1 Active [id number] Problem Colon cancer screening Z12.11 Active [id number] ALLERGIES Substance Reaction Event Type Date Status Antibiotic Unknown Drug Allergy November, Active ENCOUNTERS Encounter Location Date Diagnosis [facility] [address] [place] [phone] Dec, [facility] [address] [place] [phone] November, [facility] [address] [place] [phone] November, Malignant neoplasm of colon, unspecified part of colon C18.9 [facility] [address] [place] [phone] November, [facility] Outpatient [address] [place] [id number] November, Encounter for screening colonoscopy Z12.11 ; Colon polyp K63.5 ; Rectal polyp K62.1 ; Diverticulosis of large intestine without perforation or abscess without bleeding K57.30 and Other hemorrhoids K64.8 [facility] [address] [facility] [place] [address] Oct, [facility] [address] [place] [phone] May, [facility] [address] [place] [phone] Feb, Colon cancer screening Z12.11 and [facility] (current) use of non-steroidal anti-inflammatories (NSAID) Z79.1 [facility] [address] [place] [phone] Sep, IMMUNIZATIONS No Known Immunizations SOCIAL HISTORY Qualifiers Date Current Smoker REASON FOR REFERRAL FUNCTIONAL STATUS PLAN OF CARE Activity Details VITAL SIGNS Weight 123 lbs 2022-12-09 Weight 123 lbs 2022-02-25 Height 65.5 in 2022-12-09 Height 65.5 in 2022-02-25 BMI 20.15 kg/m2 2022-12-09 BMI 20.15 kg/m2 2022-02-25 Temperature 99.1 degrees Fahrenheit Temperature 99.3 degrees Fahrenheit Blood pressure systolic 000 mm Hg Blood pressure diastolic 00 mm Hg 2022-11 MEDICATIONS Medication Instructions Dosage Frequency Start Date End Date Duration Status Stool Softener 100 MG Orally Once a day 1 capsule as needed 24h Feb, 30 day(s) Active Calcium 600+D 600-800 MG-UNIT Orally Once a day 1 tablet with a meal 24h Feb, 30 day(s) Active Ibuprofen 800 MG 30 Active Garlic 300 MG as directed Feb, Active PROCEDURES Procedure Date Ordered Result Body Site DOC RSN FOR NOT SCREEN/REC F/U HBP Feb 25, 2022 COLONOSCOPE, SUBMUCOUS INJ December 03, 2022 Pt scrn tbco and id as user Feb 25, 2022 Pt scrn tbco and id as user December 09, 2022 DOC MEDS VERIFIED W/PT OR RE Feb 25, 2022 COLONOSCOPY AND BIOPSY December 03, 2022 COLORECTAL CA SCREEN DOC REV December 09, 2022 COLORECTAL CA SCREEN DOC REV Feb 25, 2022 LESION REMOVAL COLONOSCOPY December 03, 2022 RESULTS Name Result Date Reference Range CT chest w con 2023-01-15 CT abdomen pelvis w con 2023-01-15 Complete Blood Count Auto Diff 2022-12-18 White Blood Count 6.0 4.8-10.8 Red Blood Count 4.14 4.20-5.50 Hemoglobin 13.0 12.0-16.0 Hematocrit 38.4 37.0-47.0 Mean Corpuscular Volume 92.8 80.0 -98.0 Mean Corpuscular Hemoglobin 31.4 27.0-33.0 Mean Corpuscular HGB Conc 33.9 31 .0-35.0 Red Cell Distribution Width 13.1 11.0-16.0 Platelet Count 318 160-400 Mean Platelet Volume 9.6 9.4-12. 3 Neutrophils Percent Auto 73.4 45- 73 Imm Gran Pct Auto 0.2 0.0-0.4 Lymphocytes Percent Auto 16.2 20- 40 Monocytes Percent Auto 6.5 2-11 Eosinophils Percent Auto 3.0 0-4 Basophils Percent Auto 0.7 0-2 NRBC Pct Auto 0.0 0.0-0.2 Neutrophils Absolute Auto 4.4 2. 0-8.3 Imm Gran Abs Auto 0.01 0.00-0.03 Lymphocytes Absolute Auto 1.0 1. 2-4.9 Monocytes Absolute Auto 0.4 0.1- 1.2 Eosinophils Absolute Auto 0.2 0. 0-0.4 Basophils Absolute Auto 0.0 0.0- 0.2 NRBC Abs Auto 0.000 0.0-0.012 Liver Panel 2022-12-18 Bilirubin Total 0.6 0.0-1.0 Bilirubin Direct 0.1 0.0-0.5 Aspartate Amino Transferase 20 5-31 Alanine Aminotransferase 13 0-3 1 Total Protein 6.3 6.5-8.0 Albumin Level 4.1 3.5-5.0 Alkaline Phosphatase 50 39-117 Blood Urea Nitrogen 2022-12-18 Blood Urea Nitrogen 6 9-16 Creatinine 2022-12-18 Creatinine 0.70 0.5-1.4 Estimated Glomerular Filt Rate >60 Carcinoembryonic Antigen 2022-12-18 Carcinoembryonic Antigen 3.20 BRAF Mutation Analysis 2022-12-03 BRAF Mutation Analysis See Note KRAS Mutation Analysis 2022-12-03 KRAS Mutation Analysis See Note NRAS Mutation 2022-12-03 NRAS Mutation See Note REASON FOR VISIT colon ca, follow up, CT scan, labs , Patient presents today for a colonoscopy results, f/u polyps, SCREENING COLON, Rescheduled her colon, screening, colon [...] Subscriber Date of Group No MEDICARE OF [place] [address] [facility] [address] MEDICARE OF [place] self SHREYA DEVINE [id number] [facility] [employer] TH INDEMNITY [address] [facility] [address] [facility] [employer] self SHREYA DEVINE [id number]
--- OUTSIDE RECORDS SUMMARY | 2023-02-07 08:24 | XMS_ITS ---
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 of non-steroidal anti-inflammatorie s (NSAID) Z79.1 Active [id number] Problem Colon cancer screening Z12.11 Active 008903449 ALLERGIES Substance Reaction Event Type Date Status Antibiotic Unknown Drug Allergy November, Active ENCOUNTERS Encounter Location Date Diagnosis [facility] [address] [place] [phone] Dec, [facility] [address] [place] [phone] November, [facility] [address] [place] [phone] November, Malignant neoplasm of colon, unspecified part of colon C18.9 [facility] [address] [place] [phone] November, [facility] [address] [place] [id number] November, Encounter for screening colonoscopy Z12.11 ; Colon polyp K63.5 ; Rectal polyp K62.1 ; Diverticulosis of large intestine without perforation or abscess without bleeding K57.30 and Other hemorrhoids K64.8 [facility] [address] [facility] [place] [address] Oct, [facility] [address] [place] [phone] May, [facility] [address] [place] [phone] Feb, Colon cancer screening Z12.[address] [facility] (current) use of non-steroidal anti-inflammatories (NSAID) Z79.1 [facility] [address] [place] [phone] Sep, IMMUNIZATIONS No Known Immunizations SOCIAL HISTORY [...] Subscriber Date of Group No [place] [address] [facility] [address] [place]ARE OF [place] self SHREYA DEVINE [id number] [facility] [employer] TH INDEMNITY [address] [facility] [address] [facility] [employer] self SHREYA DEVINE [id number]
--- NOTE | 2023-02-07 08:35 | MHC.SHP ---
Pre-Procedural Eval Section A Date of Service: 02/07/23 Section B Chief Complaint: colon cancer Details of Present Illness: 73-year-old female who had a colonoscopy last Nov, 2022 with a polyp removed at level 50 cm showing invasive adenocarcinoma. She is here for resection of this segment. She denies significant GI complaints Relevant Family History (Specify if Yes): No Relevant Social History: None Present Medications: see Short Stay Collaborative assessment Medical History: Significant History Allergies: Allergies Allergy/AdvReac Type Severity Reaction Status Date / Time amoxicillin Allergy Intermediate anaphylaxis Verified 01/31/23 12:02 (CAN ONLY TAKE DOXYCYCLINE-REACTIONS TO MOST) Review of Systems Sugical H&P ROS: Negative: Constitution, Cardiovascular, Respiratory, Neurological, Psychiatric, Hem-Onc, Allergic/Immunologic, Gastrointestinal, Genitourinary, Musculoskeletal, Integumentary, Endocrine and Eyes/Ears/Nose/Throat Exam Surgical H&P Exam: Normal: HEENT, Normal: Heart, Normal: Lungs, Normal: Extremities, Normal: Abdomen, Normal: Skin and Normal: Neurological Plan Diagnosis/Plan: Unchanged I have reviewed the history and physical and performed a pertinent physical examination on my patient. No changes have occurred unless specified. Time Spent With Patient Time: Total time managing care of this patient today ____ minutes.
--- NOTE | 2023-02-07 11:02 | P.OP_ITS ---
Operative Note Operative Note Date of Service: 02/07/23 Narrative: Preop diagnosis: Colon cancer, left colon Postop diagnosis: Colon cancer, mid transverse colon Procedure: Hand assisted laparoscopic transverse colon resection, extensive lysis of adhesions Surgeon: Cisco Roy MD retail loan originator assistant: ROD Mascorro The patient is a 73-year-old female who had a colonoscopy in Nov, 2022, and had a sessile polyp removed piecemeal fashion at level 50 cm. This area was a for marking. The polyp showed invasive adenocarcinoma. I therefore explained to her that it would be best to proceed with resection as the cancer was removed in a piecemeal fashion and was sessile. She understood the technique of the procedure as well as the risks, benefits, and alternatives. The patient was brought to the operating room. She was placed in modified lithotomy position under general anesthesia via endotracheal tube. The abdomen and the perineum were prepped and draped in the usual sterile fashion. A surgical time-out was done. The patient received Cefotan 2 g IV preoperatively Made a short incision midline below the umbilicus using a blade 15. And this was carried down through the full-thickness of the skin subcutaneous fat down to the fascia. There was note of fibrotic changes from her previous hysterectomy. We incised the fascia and carefully entered the peritoneal cavity. I lengthened the fascial incision to optimize the skin incision. There was note of a lot of adherent omentum on the right side. The colon was also adherent to the abdominal wall on this area. We had to do careful lysis of adhesions using a combination of electrocautery as well as with the LigaSure . Eventually, with a lot of dissection I was able to have a free up the entire bowel loops and adhesions from the abdominal wall. I was able to therefore position a GelPort. We insufflated this dL for to a pressure of 15 mm hg. With laparoscopic visualization inserted a 5/12 mm at the epigastric area below the subcostal margin. Another port, 5 mm was introduced a small incision in the right lower quadrant Patient was placed in a steep head-down and fejun-[id number] position. I reflected the bowel loops away from the pelvis and the left side. I examined the distal sigmoid and traced this left all the way to the left colon. I do not see any 2 markings in this area. Was able to identify the splenic flexure examined this as well and there was no tattoo markings. I proceeded to continue to examine the more proximal colon and in the mid transverse colon, we noted segment that was heavily tattooed. There were no other tattoo markings were out the entire colon including the right side The mid transverse colon was markedly adherent to the right colon as well I did S of the shins again using the LigaSure as well as well as electrocautery to separate the the transverse colon from the right colon. the omentum was also markedly adherent to the mid transverse colon and white to do a lot of dissection to separate this Eventually, as able to clearly isolate the mid transverse colon which contained the tattoo markings. There was note of redundancy of the transverse colon and it appeared that we had enough length to proceed with resection along with a [id number] anastomosis. Since the transverse colon very mobile, I proceeded to do the anastomosis to the lesion. I released pneumoperitoneum and removed the GelPort. I pulled up the entire length of cancers colon through the incision. I mobilized some of the hepatic flexure a little bit to achieve more length. The tattooed markings on the mid transverse her clearly seen. There was no palpable mass. At this time, I had conferred with did cause of with Dr. Little to confirm that there was only 1 area that was tattooed as the note had mentioned this was on level 50 cm which should be somewhere in the left colon. Once it was confirmed that there was only 1 tattooed segment, I proceeded to do the resection of this transverse colon. I chose my of transection proximal and distal, making sure that we have adequate margins. I created by mesenteric window and divided the segments using the EDWARD 60 mm stapler. I then proceeded to continue to separate the transverse colon from the attached omentum. The omentum was also adherent to the mesentery of the transverse colon so we had to do more dissection to separate this along the planes. In ventral is able to isolate the entire resected transverse colon along with attached mesentery. I marked my planned line of resection on the mesentery to make sure that we had adequate lymph node basin. There was minimal fat in the mesentery. It appeared that the middle colic was within this mesentery. Used the LigaSure to divide the mesentery all the way to the ileocolic pedicles. I isolated the middle colic pedicles in applied clamps in a fashion. I divided the middle colic Lyric clamps. I doubly ligated the pedicle using Polysorb 2-0 ties I therefore completed the transection of mesentery and these test him in was sent for immediate gross examination. I then observed for his stasis. Once of status was confirmed, proceeded to then do my side tightness Darrion. I positioned the proximal distal resection lines. Open of the apex of each staple line. I inserted the arm of the EDWARD 60 minutes taper into the lumen and position these in the anti mesenteric border. This was locked in place and I made sure that there was no other bowel loops nor mesentery within this staple line. This was fired to create the [id number] anastomosis. I completed the Darrion by closing the enterotomy with a TA 60 minute stapler. I applied see her muscular sutures on the crotch of the staple line. I examined the staple line repeatedly and these were noted to be intact. The anastomotic site appeared to be viable and well vascularized without any evidence of ischemia I then proceeded to replace the anastomosis segment back into the peritoneal cavity. I did not close the mesentery as the defect was wide I position the omentum to overlie the area of the anastomosis. We irrigated and suctioned there again fluid. Again hemostasis was confirmed I then closed the fascia of the midline with a Maxon 1 running stitch. I examined laparoscopically again through the epigastric port. There was no bowel caught on the fascial closure. There was no evidence of any bowel injury or bleeding. I removed The remaining ports. We achieved skin closure with kevan. All incisions were infiltrated with Marcaine 0.5% for postop EDWARD. We received a phone call from the pathologist stating that there were biopsy changes on the tattoo areas of the resected segment The procedure was therefore completed The patient tolerated procedure well. There were no immediate complications. Initial and final counts of sponges and instruments were correct. Estimated blood loss about 25 cc. Dressings had been applied. The patient was extubated without difficulty and transferred to the recovery room with stable vital signs.
[2023-02-07] MEDS: HYDROmorphone HCl 0.5 MG/0.5 ML SYRINGE IVPUSH (11:52)
--- NOTE | 2023-02-07 13:30 | PHA.MEDREC ---
Pharmacy Consult ? Medication Reconciliation Pharmacy has completed the medication reconciliation. Reviewed med rec done by nursing (Génesis).
[2023-02-07] MEDS: Lactated Ringers 1,000 ML 80 ML IVCONT (13:49)
--- NOTE | 2023-02-07 14:05 | PM.EVENT ---
Event Note Date of Service: 02/07/23 Event Note: seen postop she underwent transverse colon resection earlier for a malignant polyp she says she has adequate pain control abdomen soft Ontiveros clear with good urine output pain management on clear liquids incentive spirometry stable postop updated Time Spent With Patient Time: Total time managing care of this patient today ____ minutes.
[2023-02-07] MEDS: ondansetron HCL 4 MG/2 ML VIAL IVPUSH (15:10)
[2023-02-07] MEDS: Acetaminophen 1,000 MG/100 ML PIGGYBACK 400 MG IV ×2 (16:51→23:15)
[2023-02-08] MEDS: Lactated Ringers 1,000 ML 80 ML IVCONT ×2 (01:25→11:53)
[2023-02-08 03:12] VITALS: BP 122/57; PULSE 67; RESP 16; TEMP 36.6; O2SAT 96
[2023-02-08] MEDS: Acetaminophen 1,000 MG/100 ML PIGGYBACK 400 MG IV ×4 (05:56→23:09)
[2023-02-08 06:22] LABS: MANUAL DIFF FLAG NO
[2023-02-08 06:33] LABS: Basophils Percent Auto 0.4 % (0-2); Eosinophils Absolute Auto 0.1 X10*3/uL (0.0-0.4); Eosinophils Percent Auto 0.6 % (0-4); Hematocrit 32.6 % (37.0-47.0); Imm Gran Abs Auto 0.03 X10*3/uL (0.00-0.03); Imm Gran Pct Auto 0.3 % (0.0-0.4); Lymphocytes Absolute Auto 1.3 X10*3/uL (1.2-4.9); Lymphocytes Percent Auto 13.7 % (20-40); Mean Corpuscular HGB Conc 33.7 g/dl (31.0-35.0); Mean Corpuscular Hemoglobin 30.9 pg (27.0-33.0); Mean Corpuscular Volume 91.6 fL (80.0-98.0); Mean Platelet Volume 9.3 fL (9.4-12.3); Monocytes Percent Auto 11.1 % (2-11); Neutrophils Absolute Auto 6.9 x10*3/uL (2.0-8.3); Neutrophils Percent Auto 73.9 % (45-73); Platelet Count 287 X10*3/uL (160-400); Red Blood Count 3.56 X10*6/uL (4.20-5.50); Red Cell Distribution Width 12.9 % (11.0-16.0); White Blood Count 9.3 X10*3/uL (4.8-10.8)
[2023-02-08 06:45] LABS: Anion Gap 12 (12-20); Blood Urea Nitrogen 6 mg/dL (9-16); Calcium 9.2 mg/dL (8.4-10.2); Carbon Dioxide 24 mmol/L (22-29); Chloride 102 mmol/L (96-108); Estimated Glomerular Filt Rate > 60; Glucose Fasting 96 mg/dL (60-99); Potassium 3.5 mmol/L (3.3-5.1); Sodium 134 mmol/L (135-145)
[2023-02-08 07:21] VITALS: BP 122/69; PULSE 71; RESP 18; TEMP 36.8; O2SAT 93
--- NOTE | 2023-02-08 10:25 | HO.POSTANES ---
Post Anesthesia Evaluation Post Anesthesia Evaluation Date of Service: 02/07/23 Vital Signs: Vital Signs Temp Pulse Resp BP Pulse Ox O2 Del Method 02/08/23 07:21 98.3 F 71 18 122/69 93 Room Air 02/08/23 03:12 97.9 F 67 16 122/57 L 96 Room Air Anesthesia: General Endotracheal-GETA Mental Status: Awake Pain Control: Satisfactory Nausea/Vomiting: None Hydration: Adequate Anesthesia-Related Issues: No Anes. Related Issues
[2023-02-08] MEDS: Heparin Sodium,Porcine 5,000 UNIT/ML VIAL 5000 UNIT SUBCUT ×2 (10:30→22:00)
--- NOTE | 2023-02-08 11:10 | MHC.CM.PN ---
PATIENT LIVES WITH SPOUSE/HCP COPY REQUESTED. SHE PREFERS TO BE ABLE TO DC HOME WITH NO SERVICES IMM EXPLAINED AND SIGNED. PATIENT STATES THAT SHE WANTS TO GO HOME TODAY, SHE IS NOT SLEEPING WELL, AND HAS NO PLANS TO APPEAL THE DC. CASE MANAGEMENT FOLLOWING FOR ANY DC NEEDS IMM 02/08 IN CHART
[2023-02-08 15:12] VITALS: BP 170/77; PULSE 73; RESP 18; TEMP 36.7; O2SAT 93
[2023-02-08 15:39] VITALS: BP 168/72
--- NOTE | 2023-02-08 15:55 | P.PNGS_ITS ---
Subjective Subjective Date of Service: 02/08/23 Interval history: patient is doing very well complaining about the salt in his of the broth wants to go home has been moving around fine denies any flatus or bowel movement Physical Exam Vital Signs: Vital Signs: Last Vital Signs Temp 98.1 F 02/08/23 15:12 Pulse 73 02/08/23 15:12 Resp 18 02/08/23 15:12 BP 168/72 H 02/08/23 15:39 Pulse Ox 93 02/08/23 15:12 O2 Del Method Room Air 02/08/23 15:12 O2 Flow Rate 3 02/07/23 13:41 BMI result Body Mass Index 21.9 Const: General: cooperative, healthy appearing, comfortable and no acute distress Orientation/consciousness: patient oriented x3 Resp: Effort & Inspection: normal respiratory effort Auscultation: clear to auscultation bilaterally Cardio: Rate: regular rate Rhythm: regular rhythm GI: Other: abdomen is soft nondistended nontender dressings intact. Hypo bowel sounds Neuro: General: patient oriented x3 Extrem: General: Yes normal to inspection Psych: Appearance: grossly normal Mental Status: mental status grossly normal Objective Data Active Medications Diphenhydramine HCl (Diphenhydramine Hcl 50 Mg/Ml Vial) 25 mg IVPUSH Q6H PRN PRN Reason: itching Heparin Sodium (Porcine) (Heparin Sodium,Porcine 5,000 Unit/Ml Vial) 5,000 unit SUBCUT Q12H [facility] Last Admin: 02/08/23 10:30 Dose: 5,000 unit Documented By: ZONIA Acetaminophen (Ofirmev) 1,000 mg in 100 mls @ 400 mls/hr IV Q6H [facility] Last Infusion: 02/08/23 10:45 Dose: 0 mls/hr Documented By: ZONIA Lactated Ringer's (Lr) 1,000 mls @ 80 mls/hr IVCONT .[id number] [facility] Last Admin: 02/08/23 11:53 Dose: 80 mls/hr Documented By: ZONIA Melatonin (Melatonin 3 Mg Tablet) 6 mg PO BEDTIME PRN PRN Reason: Insomnia Morphine Sulfate (Morphine Sulfate 4 Mg/Ml Cartridge) 3 mg IVPUSH Q4H PRN; Protocol PRN Reason: Pain, Severe (Pain Scale 7-10) Ondansetron HCl (Ondansetron Hcl 4 Mg/2 Ml Vial) 4 mg IVPUSH Q6H PRN PRN Reason: Nausea and Vomiting Last Admin: 02/07/23 15:10 Dose: 4 mg Documented By: ZONIA Oxycodone HCl (Oxycodone Hcl Immed Release 5 Mg Tablet) 5 mg PO Q4H PRN PRN Reason: Pain, Moderate(Pain Scale 4-6) Oxycodone HCl (Oxycodone Hcl Immed Release 5 Mg Tablet) 10 mg PO Q4H PRN PRN Reason: Pain, Severe (Pain Scale 7-10) Sodium Chloride (0.9 % Sodium Chloride Flush 3 Ml Syringe) 3 ml IVFLUSH QSHIFT [facility] Last Admin: 02/08/23 07:07 Dose: Not Given Documented By: ZONIA Non-Admin Reason: IV Running Labs 02/08/23 05:23 02/08/23 05:23 Labs: Laboratory Results - last 24 hr 02/08/23 02/08/23 05:23 05:23 MCV 91.6 MCH 30.9 MCHC 33.7 RDW 12.9 Plt Count 287 MPV 9.3 L Immature Gran % (Auto) 0.3 Neut % (Auto) 73.9 H Lymph % (Auto) 13.7 L [place] % (Auto) 11.1 H Eos % (Auto) 0.6 Baso % (Auto) 0.4 Lymph # (Auto) 1.3 [place] # (Auto) 1.0 Eos # (Auto) 0.1 Baso # (Auto) 0.0 Abs Immat Gran (auto) 0.03 Absolute Neuts (auto) 6.9 Absolute Nucleated RBC 0.000 Nucleated RBC % (auto) 0.0 Anion Gap 12 Estim Creat Clear Calc 64.0 Estimated GFR > 60 Fasting Glucose 96 Calcium 9.2 D Procedures Date of Service Date of Service: 02/08/23 Progress Note: A&P Assessment and plan (1) Colon adenocarcinoma: Status: Acute Plan 73-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 She looks great moving around fine she is comfortable no flatus as yet. Plan to slowly advanced to diet tomorrow once more bowel movements and gas are moving through. She looks great otherwise. She is anxious to get home Time Spent With Patient Time: Total time managing care of this patient today ____ minutes. Quality Stroke Does the patient have a stroke diagnosis?: No VTE Prior VTE?: No VTE Risk Level:: Surgical - high VTE Device Contraindication: N/A - Device Ordered VTE Drug Contraindication: N/A - Med Ordered
[2023-02-08 20:00] VITALS: BP 168/86; PULSE 74; RESP 18; TEMP 36.7; O2SAT 94
[2023-02-09] MEDS: Lactated Ringers 1,000 ML 80 ML IVCONT (03:07)
[2023-02-09 03:20] VITALS: BP 165/81; PULSE 63; RESP 16; TEMP 36.6; O2SAT 98
[2023-02-09 07:39] VITALS: BP 167/79; PULSE 83; RESP 18; TEMP 36; O2SAT 95
[2023-02-09] MEDS: Heparin Sodium,Porcine 5,000 UNIT/ML VIAL 5000 UNIT SUBCUT (10:41)
[2023-02-09] MEDS: Acetaminophen 1,000 MG/100 ML PIGGYBACK 400 MG IV (10:42)
--- NOTE | 2023-02-09 12:23 | P.PNGS_ITS ---
Subjective Subjective Date of Service: 02/09/23 Interval history: having bowel movements and pasing gas and tolerating liquids well. wants to go home Physical Exam Vital Signs: Vital Signs: Last Vital Signs Temp 96.8 F 02/09/23 07:39 Pulse 83 02/09/23 07:39 Resp 18 02/09/23 07:39 BP 167/79 H 02/09/23 07:39 Pulse Ox 95 02/09/23 07:39 O2 Del Method Room Air 02/09/23 07:39 O2 Flow Rate 3 02/07/23 13:41 BMI result Body Mass Index 21.9 Const: General: cooperative, healthy appearing and comfortable Orientation/consciousness: patient oriented x3 Resp: Effort & Inspection: normal respiratory effort Auscultation: clear to auscultation bilaterally Cardio: Rate: regular rate Rhythm: regular rhythm GI: Other: abdo soft nontender nondistended great bowel sounds and incisions look great Neuro: General: patient oriented x3 and moves all extremities Objective Data Active Medications Diphenhydramine HCl (Diphenhydramine Hcl 50 Mg/Ml Vial) 25 mg IVPUSH Q6H PRN PRN Reason: itching Heparin Sodium (Porcine) (Heparin Sodium,Porcine 5,000 Unit/Ml Vial) 5,000 unit SUBCUT Q12H [facility] Last Admin: 02/09/23 10:41 Dose: 5,000 unit Documented By: ZONIA Acetaminophen (Ofirmev) 1,000 mg in 100 mls @ 400 mls/hr IV Q6H [facility] Last Infusion: 02/09/23 11:08 Dose: 0 mls/hr Documented By: ZONIA Lactated Ringer's (Lr) 1,000 mls @ 80 mls/hr IVCONT .[id number] [facility] Last Infusion: 02/09/23 11:59 Dose: 0 mls/hr Documented By: ZONIA Ibuprofen (Ibuprofen 600 Mg Tablet) 600 mg PO Q6H PRN PRN Reason: Pain, Severe (Pain Scale 7-10) Melatonin (Melatonin 3 Mg Tablet) 6 mg PO BEDTIME PRN PRN Reason: Insomnia Morphine Sulfate (Morphine Sulfate 4 Mg/Ml Cartridge) 3 mg IVPUSH Q4H PRN; Protocol PRN Reason: Pain, Severe (Pain Scale 7-10) Ondansetron HCl (Ondansetron Hcl 4 Mg/2 Ml Vial) 4 mg IVPUSH Q6H PRN PRN Reason: Nausea and Vomiting Last Admin: 02/07/23 15:10 Dose: 4 mg Documented By: ZONIA Oxycodone HCl (Oxycodone Hcl Immed Release 5 Mg Tablet) 5 mg PO Q4H PRN PRN Reason: Pain, Moderate(Pain Scale 4-6) Oxycodone HCl (Oxycodone Hcl Immed Release 5 Mg Tablet) 10 mg PO Q4H PRN PRN Reason: Pain, Severe (Pain Scale 7-10) Sodium Chloride (0.9 % Sodium Chloride Flush 3 Ml Syringe) 3 ml IVFLUSH QSHIFT [facility] Last Admin: 02/09/23 07:01 Dose: Not Given Documented By: ZONIA Non-Admin Reason: IV Running Labs 02/08/23 05:23 02/08/23 05:23 Procedures Date of Service Date of Service: 02/09/23 Progress Note: A&P Assessment and plan (1) Colon adenocarcinoma: Status: Acute Assessment and Plan: pod#2 sp transverse colectomy doing very well - advance diet heplock ivf po pain meds and if does well consider dc home after dinner. Time Spent With Patient Time: Total time managing care of this patient today ____ minutes. Quality Stroke Does the patient have a stroke diagnosis?: No VTE Prior VTE?: No VTE Risk Level:: Surgical - high VTE Device Contraindication: N/A - Device Ordered VTE Drug Contraindication: N/A - Med Ordered
--- NOTE | 2023-02-09 13:14 | PC.NURSE ---
Pt upgraded to regular diet, tolerated lunch with no nausea or vomiting, continues to ambulate in the hallway, pain level tolerable 1-09/06, no other complaints at this time.
[2023-02-09 15:13] VITALS: BP 162/71; PULSE 83; RESP 18; TEMP 36.6; O2SAT 97
[2023-02-09] MEDS: 0.9 % Sodium Chloride Flush 3 ML SYRINGE IVFLUSH (16:45)
--- NOTE | 2023-02-09 17:50 | P.DS_ITS ---
DS: Providers Provider Date of Service: 02/09/23 Date of admission: 02/07/23 08:17 Primary care physician: Misha Sanford MD Discharging clinician: Lolis Khan DS: Diagnosis Discharge Diagnosis (1) Colon adenocarcinoma: Start date: 02/06/23 Status: Acute DS: Summary Hospital Course Hospital Course: pt is a 73 year old female came in for elective colectomy for colon cancer. has done very well tolerating po diet and ambulating and passing gas and stool minimal pain. plan dc home Status at Discharge Overall status at discharge: patient is progressing back to baseline Time Spent with Patient Time attestation: Total time managing care of this patient today ____ minutes. Discharge coordination time: Less than 30 minutes Quality: Safe Use of Opioids Does Pt have an Active Cancer Diagnosis on the Problem List?: Yes Opioid Measure Date for [facility] Report: 01/10/23 Opioid Measure Time for [facility] Report: 17:51 Quality: Stroke Does the patient have a stroke diagnosis?: No Physical Exam Vital Signs: Vital Signs: Last Vital Signs Temp 97.9 F 02/09/23 15:13 Pulse 83 02/09/23 15:13 Resp 18 02/09/23 15:13 BP 162/71 H 02/09/23 15:13 Pulse Ox 97 02/09/23 15:13 O2 Del Method Room Air 02/09/23 15:13 O2 Flow Rate 3 02/07/23 13:41 BMI result Body Mass Index 21.9 Const: General: cooperative, healthy appearing, comfortable and no acute distress GI: Other: abdo benign DS: Data Data Completed and Pending Pending studies at discharge: Pending at discharge 02/07/23 10:29 Surgical [PTH] Stat Discharge Plan Discharge Anticipated Discharge Date/Time: 02/09/23 17:39 Patient Disposition: Home, Self-Care Discharge Diagnosis: S/P COLECTOMY FOR COLON CANCER Referrals: Misha Sanford MD [Primary Care Provider] - 1 Week Discharge Medications: New ibuprofen 600 mg Tablet 600 mg PO Q6H PRN (Reason: Pain, Severe (Pain Scale 7-10)) Qty: 20 0RF oxycodone 5 mg Tablet 5 mg PO Q4H PRN (Reason: Pain, Severe) Qty: 10 0RF Rx Instructions: Partial Fill upon patient request. docusate sodium [DOK] 100 mg capsule 100 mg PO BID Qty: 20 0RF Continued docusate sodium [Stool Softener] 100 mg Capsule 100 mg PO QPM Multivitamin 50 Plus Tablet 1 tab PO QPM garlic 1,000 mg Capsule 2,000 mg PO QPM calcium carbonate-vitamin D3 600 mg-5 mcg (200 unit) Tablet 1 tab PO QPM Discontinued acetaminophen 500 mg Tablet 500 mg PO BID Discharge Orders: Discharge Order (Routine); Ordered 02/09/23 Ordered By: Lolis Khan Activity on Discharge: No heavy lifting Stand Alone Forms: Patient Portal Discharge page Care Plan Goals: light diet and increase slowly, no lifting more than 10 lbs, Health Concerns: fever chills, increased pain nausea and vomiting call the office discharge from wounds Plan of Treatment: increase diet and activity ibuprofen prefered for pain control Assessment: pt doing very well wants to go home and will call the office for a fu this week.
== END 2023-02-09 18:07 | disposition home or self-care (01) | DRG 331 ==
LOC: HO.SSSA 08:21 → HO.S3 12:35
PROVIDERS: Nurse Practitioner; Surgery; Admitting Provider Physician Assistant Surgical; PCP Internal Medicine; Visit Provider Physician Assistant Surgical
PROC: 0DTE0ZZ Resection of Large Intestine, Open Approach (ICD-10-PCS; principal; 2023-02-07 09:10)
DX: C18.4 Malignant neoplasm of transverse colon (principal); E78.00 Pure hypercholesterolemia, unspecified; K66.0 Peritoneal adhesions (postprocedural) (postinfection); J43.9 Emphysema, unspecified; Z79.899 Other long term (current) drug therapy
CPT/HCPCS: 36415; 80048; 85025; 85027; 86850; 86900; 86901; 88309; 88329; 93005; J0131; J1170; J1643; J2250; J2405; J2795; J3010

== ENCOUNTER → 2023-02-07 08:17 | Outpatient (BNV) | payer MEDICARE, OTHER, SELFPAY | PROVIDERS: Admitting Provider Physician Assistant Surgical; PCP Internal Medicine; Visit Provider Surgery | DX: C18.4 Malignant neoplasm of transverse colon (principal); Z48.89 Encounter for other specified surgical aftercare | CPT/HCPCS: 44204; 99024; 99499 ==

== ENCOUNTER 2023-02-24 13:23 | Outpatient (AMB) | payer MEDICARE, OTHER, SELFPAY ==
--- NOTE | 2023-02-24 13:37 | A.OFFVIS_ITS ---
Intake Vital Signs 02/24/23 13:42 Weight 116 lb BP 119/87 Blood Pressure Location Rt brachial Position Sitting Pulse 92 Intake Visit Reasons: S/P Lt colon resection Intake Note: This patient presents for a post-op follow-up assessment status post left colon resection. Patient denies complaints at this time. Financial [employer]ations Associate Required: No Accompanied by: Self / Same As Patient Allergies amoxicillin Allergy (Intermediate, Verified 02/24/23 13:43) anaphylaxis (CAN ONLY TAKE DOXYCYCLINE-REACTIONS TO MOST) HPI S/P Lt colon resection HPI Details She underwent transverse colon resection for adenocarcinoma last February 02, 2023. She tolerated procedure well. She was actually discharged on her postop day 2. She says she is doing well. She has good oral intake. She has good bowel movements. [facility] Medical History (Updated 02/24/23 @ 13:48 by Cisco Roy MD) Allergic rhinitis Anal fistula Back pain Colon adenocarcinoma Colon cancer COPD (chronic obstructive pulmonary disease) Elevated cholesterol Emphysema lung Lung cancer Osteoarthritis Osteoporosis Skin cancer (melanoma) Surgical History H/O hemorrhoidectomy H/O: hysterectomy History of meniscectomy of left knee History of surgery Hx of appendectomy Hx of colonoscopy Hx of kyphoplasty Hx of meniscectomy of right knee Hx of tonsillectomy Family History Father Mother Colon cancer Social History Household Members: Spouse Housing: House Are you a primary rn urgent care to a significant other at home: No Do you presently have visiting nurse or other home services: No Alcohol intake: current Alcohol intake frequency: holidays/special occasions only Alcohol type: wine Patient Tobacco Use Status: Current someday Tobacco user Tobacco use type: Cigarette Cigarettes Per Day: 1 Years Smoked: 60 service: No Current occupational status: retired Review of Systems Const Denies chills and Denies fever(s) Card Denies chest pain, Denies dyspnea and Denies dyspnea on exertion Resp Denies cough, Denies dyspnea and Denies dyspnea on exertion GI Denies hematochezia and Denies change in bowel habits Denies hematuria Musc Denies back pain and Denies limited range of motion Neuro Denies focal weakness and Denies convulsions Psych Denies depression and Denies mood swings Physical Exam Vital Signs: Last Vital Signs Pulse 92 02/24/23 13:42 BP 119/87 02/24/23 13:42 Const General: comfortable and no acute distress Resp Effort & Inspection: normal respiratory effort GI Other: Soft, nondistended, no guarding, no rebound, and incisions well healed, kevan intact Assessment & Plan Assessment & Plan (1) Colon cancer: Code(s): C18.9 - Malignant neoplasm of colon, unspecified Plan: Status post transverse colon resection. Her path report shows focal dysplasia on the previous polypectomy site with no residual cancer. Lymph nodes were negative. There were only ten lymph nodes that were seen in the specimen She had a T1 N0 lesion. I am going to send her for a new with the oncologist although it is unlikely that she will benefit from chemotherapy. She is doing very well. I removed all her skin kevan. I advised her to avoid any lifting more 20 lb for about 2 more weeks. She may need to have a follow-up colonoscopy in 1 year per so I instructed her to touch base with Dr. Young. She can otherwise follow up on a p.r.n. basis. Coding Level of Care Code Global (46188) Diagnoses Colon cancer C18.9
[2023-02-24 13:42] VITALS: BP 119/87; PULSE 92
== END 2023-02-24 14:03 | disposition home or self-care (01) ==
PROVIDERS: PCP Internal Medicine; Visit Provider Surgery
DX: C18.4 Malignant neoplasm of transverse colon (principal); Z48.89 Encounter for other specified surgical aftercare
CPT/HCPCS: 99024

== ENCOUNTER → 2023-02-24 13:23 | Outpatient (BNVA) | payer MEDICARE, OTHER, SELFPAY | PROVIDERS: PCP Internal Medicine; Visit Provider Surgery ==

== ENCOUNTER 2023-03-18 09:42 | Outpatient (REF) | payer MEDICARE, OTHER, SELFPAY ==
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
== END 2023-03-18 09:43 | disposition home or self-care (01) ==
LOC: HO.XRAY 09:42
PROVIDERS: PCP Internal Medicine; Visit Provider Physician Assistant
DX: T14.90XA Injury, unspecified, initial encounter (principal); V89.2XXA Person injured in unspecified motor-vehicle accident, traffic, initial encounter
CPT/HCPCS: 71046

== ENCOUNTER 2023-04-17 07:28 | Outpatient (REF) | payer MEDICARE, OTHER, SELFPAY ==
[2023-04-17 10:43] LABS: MANUAL DIFF FLAG NO
[2023-04-17 10:52] LABS: Basophils Absolute Auto 0.1 X10*3/uL (0.0-0.2); Basophils Percent Auto 1.2 % (0-2); Eosinophils Absolute Auto 0.2 X10*3/uL (0.0-0.4); Hematocrit 40.6 % (37.0-47.0); Hemoglobin 13.5 g/dl (12.0-16.0); Imm Gran Abs Auto 0.01 X10*3/uL (0.00-0.03); Imm Gran Pct Auto 0.2 % (0.0-0.4); Lymphocytes Absolute Auto 1.6 X10*3/uL (1.2-4.9); Mean Corpuscular HGB Conc 33.3 g/dl (31.0-35.0); Mean Corpuscular Hemoglobin 30.3 pg (27.0-33.0); Mean Corpuscular Volume 91.2 fL (80.0-98.0); Mean Platelet Volume 9.3 fL (9.4-12.3); Monocytes Absolute Auto 0.6 X10*3/uL (0.1-1.2); Monocytes Percent Auto 9.4 % (2-11); Neutrophils Absolute Auto 3.5 x10*3/uL (2.0-8.3); Neutrophils Percent Auto 58.2 % (45-73); Platelet Count 336 X10*3/uL (160-400); Red Blood Count 4.45 X10*6/uL (4.20-5.50); Red Cell Distribution Width 13.1 % (11.0-16.0)
[2023-04-17 11:06] LABS: Alanine Aminotransferase 12 U/L (0-31); Albumin Level 4.3 g/dL (3.5-5.0); Alkaline Phosphatase 57 U/L (39-117); Anion Gap 13 (12-20); Aspartate Amino Transferase 21 U/L (5-31); Bilirubin Total 0.5 mg/dL (0.0-1.0); Blood Urea Nitrogen 9 mg/dL (9-16); Calcium 9.8 mg/dL (8.4-10.2); Carbon Dioxide 26 mmol/L (22-29); Chloride 102 mmol/L (96-108); Cholesterol 244 mg/dL (<200); Estimated Glomerular Filt Rate > 60; Glucose Random 87 mg/dL (60-115); HDL Cholesterol 77 mg/dL (>40); LDL Cholesterol Calculated 149 mg/dL (<100); Potassium 4.1 mmol/L (3.3-5.1); Sodium 137 mmol/L (135-145); Total Protein 7.1 g/dL (6.5-8.0); Triglycerides 91 mg/dL (<150)
[2023-04-17 11:22] LABS: Vitamin D 25-OH Total 69.6 ng/mL (>30)
== END 2023-04-17 07:29 | disposition home or self-care (01) ==
LOC: HO.10HDL 07:28
PROVIDERS: Visit Provider Internal Medicine
DX: E78.00 Pure hypercholesterolemia, unspecified (principal); M81.0 Age-related osteoporosis without current pathological fracture
CPT/HCPCS: 36415; 80053; 80061; 82306; 85025

== ENCOUNTER 2024-02-24 07:26 | Day surgery (SDC) | payer MEDICARE, OTHER, SELFPAY ==
[2024-02-20 14:31] VITALS: BMI 20.2
--- NOTE | 2024-02-23 08:55 | P.CONAN_ITS ---
Documented by User: Karey Pardo NP 02/23/24 08:57 HPI - Anesthesia Eval Consult details Narrative: 74yo F for Colonoscopy s/p colo resection 01/2023 with [facility] Active Problems Active Problems: All Active Problems Piriformis muscle pain (Acute) Pubic ramus fracture (Acute) Colon cancer (Acute) Past Medical History Medical History (Updated 04/08/23 @ 11:24 by [employer]) Colon cancer Back pain Skin cancer (melanoma) Emphysema lung Lung cancer Colon adenocarcinoma Anal fistula Osteoarthritis Elevated cholesterol Allergic rhinitis Osteoporosis COPD (chronic obstructive pulmonary disease) Family History Family History Father Mother Colon cancer Family history of problems with anesthesia: No Surgical History Surgical History (Updated 02/20/24 @ 14:31 by Génesis Calixto RN) History of colon resection Hx of kyphoplasty Hx of meniscectomy of right knee Hx of appendectomy History of meniscectomy of left knee History of surgery Hx of colonoscopy H/O hemorrhoidectomy H/O: hysterectomy Hx of tonsillectomy History of Problems with Anesthesia: No Social History Social History Household Members: Spouse Housing: House Are you a primary ostomy care nurse to a significant other at home: No Do you presently have visiting nurse or other home services: No Alcohol intake: current Alcohol intake frequency: holidays/special occasions only Alcohol type: wine Patient Tobacco Use Status: Current everyday Tobacco user Tobacco use type: Cigarette Cigarettes Per Day: 1 Years Smoked: 60 Use of substances other than those prescribed or required for medical reasons: No Are you DNR?: No Advance Directives: No Advance Directives Information Provided: Yes service: No Current occupational status: retired Meds Allergies Allergy/AdvReac Type Severity Reaction Status Date / Time amoxicillin Allergy Intermediate anaphylaxis Verified 09/03/23 10:05 (CAN ONLY TAKE DOXYCYCLINE-REACTIONS TO MOST) Home Medications ?Medication ?Instructions ?Recorded ?Confirmed ?Last Taken ?Type docusate sodium 100 mg capsule 100 mg PO QPM 12/11/22 02/20/24 Unknown History (Stool Softener) ifdwvzgubkyw-zpcpxryx-uxiacs 1 tab PO QPM 12/12/22 02/20/24 Unknown History tablet (Multivitamin 50 Plus tablet) calcium carbonate 600 mg-vitamin 1 tab PO QPM 01/31/23 02/20/24 Unknown History D3 5 mcg (200 unit) tablet garlic 1,000 mg capsule 2,000 mg PO QPM 01/31/23 02/20/24 Unknown History Exam Height,Weight and Vital Signs: Height 5 ft 5.5 in Weight 55.792 kg Assessment and Plan Assessment Anesthesia Assessment: Chart Reviewed Final Anesthetic Review Family History of Problems with Anesthesia: No History of Problems with Anesthesia: No Documented by User: Adams Morrison MD 02/24/24 14:19 PMFSH Past Medical History Medical History (Updated 04/08/23 @ 11:24 by [employer] [facility]) Colon cancer Back pain Skin cancer (melanoma) Emphysema lung Lung cancer Colon adenocarcinoma Anal fistula Osteoarthritis Elevated cholesterol Allergic rhinitis Osteoporosis COPD (chronic obstructive pulmonary disease) Family History Family History Father Mother Colon cancer Surgical History Surgical History (Updated 02/20/24 @ 14:31 by Génesis Calixto RN) History of colon resection Hx of kyphoplasty Hx of meniscectomy of right knee Hx of appendectomy History of meniscectomy of left knee History of surgery Hx of colonoscopy H/O hemorrhoidectomy H/O: hysterectomy Hx of tonsillectomy Social History Social History Household Members: Spouse Housing: House Are you a primary ostomy care nurse to a significant other at home: No Do you presently have visiting nurse or other home services: No Alcohol intake: current Alcohol intake frequency: holidays/special occasions only Alcohol type: wine Patient Tobacco Use Status: Current everyday Tobacco user Tobacco use type: Cigarette Cigarettes Per Day: 1 Years Smoked: 60 Use of substances other than those prescribed or required for medical reasons: No Are you DNR?: No Advance Directives: No Advance Directives Information Provided: Yes service: No Current occupational status: retired Meds Allergies Allergy/AdvReac Type Severity Reaction Status Date / Time amoxicillin Allergy Intermediate anaphylaxis Verified 09/03/23 10:05 (CAN ONLY TAKE DOXYCYCLINE-REACTIONS TO MOST) Home Medications ?Medication ?Instructions ?Recorded ?Confirmed ?Last Taken ?Type docusate sodium 100 mg capsule 100 mg PO QPM 12/11/22 02/20/24 Unknown History (Stool Softener) tveebotmorgt-csqjsvbi-rkhnjx 1 tab PO QPM 12/12/22 02/20/24 Unknown History tablet (Multivitamin 50 Plus tablet) calcium carbonate 600 mg-vitamin 1 tab PO QPM 01/31/23 02/20/24 Unknown History D3 5 mcg (200 unit) tablet garlic 1,000 mg capsule 2,000 mg PO QPM 01/31/23 02/20/24 Unknown History Exam Airway Mallampati Class: II TM Dist: >3cm Neck ROM: Full Loose/Missing/Broken Teeth: No Assessment and Plan Assessment Anesthesia Assessment: Anesthesia Plan Discussed Final Anesthetic Review NPO: Yes ASA Class: III Final Preanesthetic Review: No Changes in Pt Med Stat, Meds/Allgs Chart Reviewed, Consent Obtained/Reviewed and Anes Risks/Benef Reviewed Patient Risk: Intermediate Procedure Risk: Low Anesthetic Plan Anesthetic Plan: MAC: Disposition: Standard PACU
--- OUTSIDE RECORDS SUMMARY | 2024-02-24 07:32 | XMS_ITS ---
Author Organization [facility] Address [address] [place] [address] Care Team Providers Care Process Development Manager Name Role Phone Chitra Arreola Primary Care Provider Rudy Cross Jr Unavailable ALLERGIES Allergen (clinical drug ingredient) Drug/Non Drug Allergy documented on EMR Reaction Allergy Type Onset Date Status bacitracin Antibiotic Unknown Drug Allergy Activ e REASON FOR VISIT Patient presents today for a colon ca, follow up MEDICATIONS Medication SIG (Take, Route, Frequency, Duration) Notes Start Date End Date Status Ibuprofen 800 MG Oral for 30 as needed A ctive Calcium 600+D 600-800 MG-UNIT 1 tablet with a meal Orally Once a day for 30 day(s) 02/25/2022 Active Garlic 300 MG as directed Orally 02/25/2022 Active Stool Softener 100 MG 1 capsule as neede d Orally Once a day for 30 day(s) 02/25/2022 Active IMMUNIZATIONS Vaccine Route Administration Date Status Comme nts Influenza Unknown 12/10/2023 Refused SOCIAL HISTORY Tobacco Use: Social History Observation Description Date Details (start date - stop date) Current Smoker NA - NA Sex Assigned At : Social History Observation Description Sex Assigned At Unknown Tobacco Use/Smoking Question Answer Notes Patient is a current smoker How often do you smoke cigarettes? every day How many cigarettes a day do you smoke? 5 or les s Alcohol Screen Question Answer Notes Did you have a drink contain ing alcohol in the past year? Yes How often did you have a dri nk containing alcohol in the past year? 4 or more times a week (4 points) How many drinks did you have on a typical day when you were drinking in the past year? 1 or 2 drinks (0 point) How often did you have 6 or more drinks on one occasion in the past year? Never (0 point) Points 4 Interpretation Positive PROBLEMS Problem Type ICD Code Onset Dates Problem Status W/U Status Risk SNOMED Code Notes Problem Encounter for long-term (current) use of NSAIDs (Z79.1) Active confirmed 580129606459570 VITAL SIGNS BMI 20.15 kg/m2 12/10/2023 Blood pressure systolic 000 mm Hg 12/10/19 24 Blood pressure diastolic 00 mm Hg 024 Height 65.5 in 12/10/2023 Temperature 98.4 degrees Fahrenheit 12/10/19 24 Weight 123 lbs 12/10/2023 Encounters Encounter Location Date Provider Diagnosis [facility] [address] [place] [address] 12/10/2023 Rudy Young Jr Malignant neoplasm of colon, unspecified part of colon C18.9 and Encounter for long-term (current) use of NSAIDs Z79.1 ASSESSMENTS Encounter Date Diagnosis Assessment Notes Treatment Notes Treatment Clinical Notes 12/10/2023 Malignant neoplasm of colon, unspecified part of colon (ICD-10 - C18.9) 12/10/2023 Encounter for long-term (current) use of NSAIDs (ICD-10 - Z79.1) PLAN OF TREATMENT Future Test Test Name Order Date COLONOSCOPY 12/10/2023 Next Appt Details Follow Up: 1 Year, Reason: Provider Name:Rudy logan Jr, 02/24/2024 09:00:00 AM, [address] [place] [address] , [place], [place], [phone],
--- OUTSIDE RECORDS SUMMARY | 2024-02-24 07:32 | XMS_ITS ---
Author Organization [facility] Address [address] [place] [address] Care Team Providers Care Manager Medical Affairs Name Role Phone Chitra Arreola Primary Care Provider Loly Young Jr, Rudy Major [phone] Encounters Encounter Location Date Provider Diagnosis [facility] [address] [place], [place] [address] [address] 07/31/2023 Rudy Young Jr PLAN OF TREATMENT Next Appt Details Provider Name:Rudy logan Jr, 02/24/2024 09:00:00 AM, [address] [place] [address] , [place], [place], [phone],
--- OUTSIDE RECORDS SUMMARY | 2024-02-24 07:32 | XMS_ITS ---
Author Organization [facility] Address [address] [place] [address] Care Team Providers Care Long Line Teamster Name Role Phone Chitra Arreola Primary Care Provider Loly Young Jr, Rudy Major REASON FOR VISIT colon ca Encounters Encounter Location Date Provider Diagnosis [facility] [place] [address] [place] [phone] 02/24/2024 Rudy Young Jr PLAN OF TREATMENT Next Appt Details Provider Name:Rudy logan Jr, 02/24/2024 09:00:00 AM, [address] , [place], [place], [phone],
--- OUTSIDE RECORDS SUMMARY | 2024-02-24 07:32 | XMS_ITS | Patient Health Record ---
Author Organization [facility] Address [address] [place] [address] Care Team Providers Care Glycerin Operator Name Role Phone Chitra Arreola Primary Care Provider Rudy Cross Jr Unavailable [phone] ALLERGIES Allergen (clinical drug ingredient) Drug/Non Drug Allergy documented on EMR Reaction Allergy Type Onset Date Status bacitracin Antibiotic Unknown Drug Allergy Activ e REASON FOR REFERRAL No Information MEDICATIONS Medication SIG (Take, Route, Frequency, Duration) [...] Administration Date Status Comme nts Influenza Unknown 02/25/2022 Refused Influenza Unknown 12/10/2023 Refused SOCIAL HISTORY Tobacco [...] W/U Status Risk SNOMED Code Notes Problem Colon cancer screening (Z12.11) Active confirmed 819003515 Problem Diverticulosis of large intestine without perforation or abscess without bleeding (K57.30) Active confirmed Diverticul ar disease of colon (858984845) Problem Encounter for long-term (current) use of NSAIDs (Z79.1) Active confirmed 397414451610379 Problem Malignant neoplasm of colon, unspecified part of colon (C18.9) Active confirmed 928636750 VITAL SIGNS Temperature 98.4 degrees Fahrenheit 12/10/2023 Blood pressure diastolic 00 mm Hg 12/10/2023 Height 65.5 in 12/10/2023 Blood pressure systolic 000 mm Hg 12/10/2023 Weight 123 lbs 12/10/2023 BMI 20.15 kg/m2 12/10/2023 Encounters Encounter Location Date Provider Diagnosis [facility] [place] [address] [place] [id number] 02/24/2024 Rudy Young Jr [facility] [address] [place] [phone] 12/10/2023 Rudy Young Jr Malignant neoplasm of colon, unspecified part of colon C18.9 and Encounter for long-term (current) use of NSAIDs Z79.1 [facility] [address] [place] [phone] 02/24/2023 Rudy Young Jr [facility] [address] [place] [phone] 07/31/2023 Rudy Young Jr ASSESSMENTS Encounter Date Diagnosis Assessment Notes Treatment Notes Treatment Clinical Notes 12/10/2023 Encounter for long-term (current) use of NSAIDs (ICD-10 - Z79.1) 12/10/2023 Malignant neoplasm of colon, unspecified part of colon (ICD-10 - C18.9) PLAN OF TREATMENT Pending Test Test Name Order Date BUN 12/09/2022 CREATININE 12/09/2022 LIVER PROFILE 12/09/2022 CEA 12/09/2022 CBC w/o DIFF 12/09/2022 CT ABD & PELVIS WITH CONTRAST 12/09/2022 CT CHEST WITH CONTRAST 12/09/2022 Future Test Test Name Order Date COLONOSCOPY 02/25/2022 COLONOSCOPY 12/10/2023 Next Appt Details Provider Name:Rudy Thais logan Jr, 02/24/2024 09:00:00 AM, [address] [place] [address] , [place], [place], [phone], Insurance Providers Payer Name Payer Address Payer Phone Subscriber Number Group Number Insured Name Patient Relationship to Insured Coverage Start Date Coverage End Date MEDICARE OF [place] [address] [place] [address] [id number] MAMIE DEVINE Self - patient is the insured [employer] ([employer]) [address] [place] [address] [id number] MAMIE DEVINE Self - patient is the insured MEDICAL (GENERAL) HISTORY Medical History History ICD Code Osteoporosis Allergic rhinitis Elevated cholesterol COPD Osteoarthritis Colon cancer, status post transverse col ectomy 02/16, T1 N0 Surgical History Surgery Date(Month/Year) tonsilectomy hysterectomy Hemorrhoidectomy Anal fistula repair Kyphoplasty
[2024-02-24 07:56] VITALS: BMI 19.3
[2024-02-24 08:15] VITALS: BP 147/78; PULSE 77; RESP 16; TEMP 37.1; O2SAT 95
[2024-02-24] MEDS: Lactated Ringers 1,000 ML 100 ML IVCONT (08:17)
--- NOTE | 2024-02-24 08:26 | MHC.SHP ---
Pre-Procedural Eval Section A - 24 Hr Update-Section A only Date of Service: 02/24/24 Section B - Complete if H&P > 30 days Chief Complaint: Malignant neoplasm of colon, unspecified Details of Present Illness: see H&P no changes Relevant Family History (Specify if Yes): No Relevant Social History: None Present Medications: see Short Stay Collaborative assessment Medical History: No relevant PMH Allergies: Allergies Allergy/AdvReac Type Severity Reaction Status Date / Time amoxicillin Allergy Intermediate anaphylaxis Verified 09/03/23 10:05 (CAN ONLY TAKE DOXYCYCLINE-REACTIONS TO MOST) Review of Systems Sugical H&P ROS: Negative: Constitution, Cardiovascular, Respiratory, Neurological, Psychiatric, Hem-Onc, Allergic/Immunologic, Gastrointestinal, Genitourinary, Musculoskeletal, Integumentary, Endocrine and Eyes/Ears/Nose/Throat Exam Surgical H&P Exam: Normal: HEENT, Normal: Heart, Normal: Lungs, Normal: Extremities, Normal: Abdomen, Normal: Skin and Normal: Neurological Plan Diagnosis/Plan: Unchanged I have reviewed the history and physical and performed a pertinent physical examination on my patient. No changes have occurred unless specified. Time Spent With Patient Time: Total time managing care of this patient today ____ minutes.
[2024-02-24 09:35] VITALS: BP 122/55; PULSE 71; RESP 15; TEMP 36.2; O2SAT 95
--- NOTE | 2024-02-24 09:48 | OP_ITS ---
DATE OF SERVICE: 02/24/2024 SURGEON: Rudy Young MD INDICATIONS: Colon cancer screening and prior history of colon cancer. PREOPERATIVE DIAGNOSIS: POSTOPERATIVE DIAGNOSIS: PROCEDURE PERFORMED: Colonoscopy to the terminal ileum with snare polypectomy. ESTIMATED BLOOD LOSS: COMPLICATIONS: ANESTHESIA: Monitored anesthesia care. ASSISTANTS: SPECIMENS: DESCRIPTION OF PROCEDURE: A history and physical were performed. The risks and benefits of the procedure were explained to the patient, and informed consent was obtained. The patient was placed in a left lateral decubitus position. A digital rectal exam was performed and was found to be normal. The Olympus pediatric video colonoscope was introduced into the rectum and advanced to the cecum. The cecum was identified by transillumination, palpation, and identification of ileocecal valve. Examination was performed and the scope was removed. She tolerated the procedure well and was taken to recovery room in stable condition. FINDINGS: The terminal ileum was examined and appeared normal. The visualized colonic mucosa was normal. The quality of prep was good. There was a surgical anastomosis in the mid transverse colon, consistent with her history. This was widely patent. Two polyps were identified. The 1st was located in the right colon, measuring approximately 6 mm, this was removed with a hot snare. The 2nd was located at 50 cm and was removed with a hot snare, this measured approximately 8 mm. No other polyps were identified. There was moderate sigmoid diverticulosis. Retroflexed examination showed some internal hemorrhoids and hypertrophic anal papillae. IMPRESSION: Colon polyps. RECOMMENDATION: Follow up the biopsy results. MD KRIS Lo/ANUJAL / [id number]
[2024-02-24 09:50] VITALS: BP 145/72; PULSE 64; RESP 18; TEMP 36.2; O2SAT 95
== END 2024-02-24 10:08 | disposition home or self-care (01) ==
PROVIDERS: PCP Registered Nurse; Visit Provider Internal Medicine Gastroenterology
PROC: 0DJD8ZZ Inspection of Lower Intestinal Tract, Via Natural or Artificial Opening Endoscopic (ICD-10-PCS; CPT 45378; principal; 2024-02-24 09:00)
DX: Z12.11 Encounter for screening for malignant neoplasm of colon (principal); Z85.038 Personal history of other malignant neoplasm of large intestine; Z90.49 Acquired absence of other specified parts of digestive tract; D12.2 Benign neoplasm of ascending colon; D12.5 Benign neoplasm of sigmoid colon; Z98.0 Intestinal bypass and anastomosis status; K57.30 Diverticulosis of large intestine without perforation or abscess without bleeding; K62.89 Other specified diseases of anus and rectum; K64.8 Other hemorrhoids; J44.9 Chronic obstructive pulmonary disease, unspecified; E78.00 Pure hypercholesterolemia, unspecified; Z79.1 Long term (current) use of non-steroidal anti-inflammatories (NSAID); Z88.1 Allergy status to other antibiotic agents
CPT/HCPCS: 45385; 88305; J2704

== ENCOUNTER 2025-01-04 06:58 | Outpatient (REF) | payer MEDICARE, OTHER, SELFPAY ==
[2025-01-04 07:58] LABS: Alanine Aminotransferase 15 U/L (0-31); Albumin Level 4.5 g/dL (3.5-5.0); Alkaline Phosphatase 48 U/L (39-117); Anion Gap 13 (12-20); Aspartate Amino Transferase 24 U/L (5-31); Bilirubin Total 0.6 mg/dL (0.0-1.0); Blood Urea Nitrogen 8 mg/dL (9-16); Calcium 9.7 mg/dL (8.4-10.2); Carbon Dioxide 26 mmol/L (22-29); Chloride 102 mmol/L (96-108); Cholesterol 251 mg/dL (<200); Estimated Glomerular Filt Rate > 60; Glucose Fasting 92 mg/dL (60-99); Glucose Random 91 mg/dL (60-115); HDL Cholesterol 76 mg/dL (>40); LDL Cholesterol Calculated 159 mg/dL (<100); Potassium 3.9 mmol/L (3.3-5.1); Sodium 137 mmol/L (135-145); Total Protein 6.7 g/dL (6.5-8.0); Triglycerides 81 mg/dL (<150)
[2025-01-04 08:03] LABS: TSH reflex Free T4 2.04 uIU/mL (0.32-4.0)
== END 2025-01-04 06:59 | disposition home or self-care (01) ==
LOC: HO.LAB 06:58
PROVIDERS: PCP Physician Assistant Surgical; Visit Provider Physician Assistant Surgical
DX: Z00.00 Encounter for general adult medical examination without abnormal findings (principal); Z13.6 Encounter for screening for cardiovascular disorders
CPT/HCPCS: 36415; 80053; 80061; 84443

== ENCOUNTER 2025-05-26 10:37 | Outpatient (REF) | payer MEDICARE, OTHER, SELFPAY ==
--- OUTSIDE RECORDS SUMMARY | 2024-02-24 05:00 | XMS_ITS ---
Author Organization 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 Primary Care Provider Rudy Turpin Jr [phone] REASON FOR VISIT colon ca Problems Problem Type SNOMED Code ICD Code Onset Dates Problem Status W/U Status Risk Notes Problem Malignant neoplasm of colon (058829015) Malignant neoplasm of colon, unspecified (C18.9) Active confirmed Encounters Encounter Location Date Provider Diagnosis [facility] [address] [place] [id number] 02/24/2024 Rudy Young Jr Colon cancer screening Z12.11 ; Malignant neoplasm of colon, unspecified C18.9 and Colon polyps K63.5 Assessments Encounter Date Diagnosis (ICD Code) Assessment Notes Treatment Notes Treatment Clinical Notes Section Notes 02/24/2024 Colon cancer screening (ICD-10 - Z12.11) 02/24/2024 Malignant neoplasm of colon, unspecified (ICD-10 - C18.9) 02/24/2024 Colon polyps (ICD-10 - K63.5) Plan Of Treatment Next Appt Details Provider Name:Rudy logan Jr, 03/20/2026 10:20:00 AM, [address], [address], [place], [address], Progress Notes * MAMIE DEVINEDOB:[birth year] (75 yo F)Acc No.[id number]:02/24/2024 COLON WITH MAC Patient: MAMIE FERREIRA Provider: Heavenly Young MD :1950 A ge:74 Y S ex:Female Date:02/24/2024 Address:[address] [place] [address] , [place] Pcp:Tima Sesay M.D. Subjective: * Chief Complaints: * 1 . Colon ca. * Medical History: Objective: * Vitals: Assessment: * Assessment: 1. C olon cancer screening - Z12.11 (Primary) 2 . M alignant neoplasm of colon, unspecified - C18.9 3 . C olon polyps - K63.5 Plan: * Treatment: * Procedure Codes: G 0105 COLOREC CANCR SCR; COLNSCPY HI RISK, 01815 LESION REMOVE COLONOSCOPY, 0529F INTRVL 3+YRS PTS CLNSCP DOCD, Modifiers: 1P * * The named appointment provid er may or may not be the originator of this progress note, and it is not deemed complete until electronically signed by the appointment provider. Sign off status: Pending * Provider: Heavenly Young MD Date: 0 02/24/2024 Generated for Jaswant costello/Deborah/Gaganransmitting on: 01:03 PM EDT
--- NOTE | ~2025-05-26 | MM_ITS ---
EXAMINATION: DXA BONE DENSITY AXIAL HISTORY: Z78.0 TECHNIQUE: [place] Dual energy absorptiometry (DEXA) of the lumbar spine, total left hip, and femoral neck was performed. COMPARISON: Comparison is made with the prior examination dated 05/07/2022. FINDINGS: The bone mineral density of the lumbar spine is 0.852 g/cm2, corresponding to a T-score of -2.6, and a Z-score of -0.5. This is indicative of osteoporosis. This represents a BMD change of -15.0% compared to the prior exam. This is statistically significant. The bone mineral density of the left total hip is 0.533 g/cm2, corresponding to a T-score of -3.8, and a Z-score of -1.7. This is indicative of osteoporosis. This represents a BMD change of -5.0% compared to the prior exam. This is not statistically significant. The bone mineral density of the left femoral neck is 0.594 g/cm2, corresponding to a T-score of -3.2, and a Z-score of -0.9. This is indicative of osteoporosis. This represents a BMD change of 0.7% compared to the prior exam. MM/XR DEXA axial skeleton IMPRESSION: Based on bone mineral density, and according to World Health Organization (WHO) criteria, the diagnosis is consistent with osteoporosis. Statistically, 68% of repeat scans fall within 1 SD (+/- 0.010 g/cm2 for AP spine L1-L4) and 1 SD (+/- 0.012 g/cm2 for femur total) FRAX is a trademark of the [employer]'s [place] for Metabolic Bone Disease, a World Health Organization (WHO) Collaborating Center. Electronically signed by: Matheus Garcia MD 05/26/2025 11:27 AM EDT
--- OUTSIDE RECORDS SUMMARY | 2025-05-26 13:03 | XMS_ITS | Encounter Summary ---
Author Organization [facility] Address [address] [place] [address] Phone Care Team Providers Care Tissue Specialist Name Role Phone Tima Sesay PA-C Primary Care Provider [phone] Encounter Details Date Type Department Care Team (Late st Contact Info) Description 05/26/2025 Orders Only [facility] Internal Medicine [address] [place] [address] Provider, MD Milagros [facility] [place] [address] Social History Tobacco Use Types Packs/Day Years Used Date Smoking Tobacco: Every Day Cigarettes 0.1 58.9 Started: 07/06/1966 Passive Smoke Exposure: Never Smokeless Tobacco: Never Comments:Has one cigarette a day, in the past a pack a day for about 25 years Alcohol Use Standard Drinks/Week Comments Yes 4 (1 standard drink = 0.6 oz pure alcohol) small amount of merlot with sparkling water daily Education Answer Date Recorded Are you interested in more education? Not on bulmaro e 05/21/2023 Are you concerned about learning? Not on file 05/21/2023 No 05/21/2023 No 05/21/2023 Food Answer Date Recorded Within the past 6 months we worried whether our food would run out before we got money to buy more. Never True 11/04/2023 Food didn't last Not on file 11/04/2023 Residential Stability Answer Date Recor ded Family situation today data Not on file 03/2024 How many times have you move d in the past 12 months? Zero (I did not move) 11/04/2023 Paying for Meds Answer Date Recorded Do you have trouble paying for medicines? No 11/04/2023 Transportation Answer Date Recorded Has the lack of transportati on kept you from medical appointments or from getting medications? No 11/04/2023 Digital Access Answer Date Recorded No 11/04/2023 Yes 11/04/2023 Do you have reliable internet access at home? Ye s 11/04/2023 Device with a working camera? Not on file Intimate Partner Violence Answer Date R ecorded Denied Basic Needs Not on file 10/27/2024 In the past 12 months have y ou been in a relationship with a person who hurts, threatens, or tries to control you? No 10/27/2024 Worried food would run out Not on file 10/27 In the past 12 months have y ou been in a relationship with a person who hurts, threatens, or tries to control you? No 10/27/2024 Comments Unknown Sex and Gender Information Value Date Recorded Sex Assigned at Not on file Legal Sex Female 8:13 AM EDT Gender Identity Not on file Sexual Orientation Not on file documented as of this encounter Plan of Treatment Upcoming Encounters Date Type Department Care Team (Late st Contact Info) Description 06/01/2025 1:20 PM EST Office Visit [facility] Internal Medicine [address] [place] [address] Tima Sesay PA-C [address] [place] [address] [email or web address] documented as of this encounter Procedures Procedure Name Priority Date/Time Associated Diagnosis Comments HM DEXA SCAN Routine 05/26/2025 12:01 PM EDT documented in this encounter Results * HM DEXA SCAN (05/26/2025 12:01 PM EDT) us Historical Provider HEALTH MAINTENANCE Final Result documented in this encounter Visit Diagnoses Not on filedocumented in this encounter Additional Health Concerns Assessment Noted Time PHQ-2 Depression Total Score: 0 02/03/20 1:42 PM EDT documented as of this encounter Care Teams Tissue Specialist Relationship Specialty Start Date End Date Tima Sesay PA-C [address] [place] [address] [email or web address] PCP - General Physician Head Athletic Trainer 09/20/24 documented as of this encounter Additional Source Comments The information contained in this document represents components of the legal health record. It is not the complete legal health record.[facility]
--- OUTSIDE RECORDS SUMMARY | 2025-05-26 13:04 | XMS_ITS | Clinical Summary ---
Author Organization [facility] Address [address] [place] [address] Phone Care Team Providers Care Mechanotherapist Name Role Phone Tima Sesay PA-C Primary Care Provider [phone] Allergies Active Allergy Reactions Criticality Noted Date Comments Amoxicillin Anaphylaxis High 11/04/2023 Sulfamethoxazole-Trimethoprim Anaphylaxis,Rash High 11/04/2023 Erythromycin Anaphylaxis,Rash High 11/04/2023 Medications calcium carbonate-vitami n D3 1,250 mg (500 mg elemental)-400 units per tablet Take 1 tablet by mouth daily. Active docusate sodium (COLACE) 50 MG capsule Take 50 mg by mouth 2 (two) times a day. Active GARLIC ORAL Take by mouth. Active Active Problems Problem Noted Date Diagnosed Date Bilateral impacted cerumen 02/02/2025 Assessment & Plan (02/02/2025 2:39 PM EDT): Patient noted to have bilateral cerumen impaction. Ear lavage is updated in the office successful. Postmenopausal 02/02/2025 Assessment & Plan (02/02/2025 2:39 PM EDT): DXA scan ordered Routine general medical exam ination at a [facility] care facility 10/27/2024 Assessment & Plan (02/02/2025 2:40 PM EDT): Labs obtained prior to appointment and were discussed during her physical exam. Annual physical 1 year Assessment & Plan (10/27/2024 2:34 PM EDT): In preparation of her upcoming physical exam I will obtain a CMP, lipid panel, TSH, and fasting glucose. When patient comes in for her physical exam a mammogram and DXA scan should be ordered. Allergic rhinitis 05/06/2024 Family history of malignant neoplasm of colon Assessment & Plan (10/27/2024 2:34 PM EDT): Patient with a history of colon cancer who underwent resection of a large portion of her colon without colostomy bag. Patient did not require any chemo or radiation treatments. She follows closely with GI at [facility] and last colonoscopy was in January 2023 which according to the patient was normal. Recommended repeat colonoscopy in 3 years. Hyperlipidemia 05/06/2024 Assessment & Plan (02/02/2025 2:41 PM EDT): Patient's labs that were obtained prior to her appointment revealed an LDL of 159. Patient states that she does not consume cheese products or butter. However she does use creamer in her coffee and drinks a significant amount of milk which also could be contributing to her elevated LDL. We discussed decreasing this and also attempting to exercise she does find this difficult as she does have some pain which has put a damper on some of her exercise. I also discussed that this could also be due to genetics. Patient does not want to go on medications and we discussed just dieting and trying to limit the amount of milk and creamer We will follow-up in 3 months with repeat labs Assessment & Plan (05/06/2024 12:19 PM EDT): Declines labs today noting that these were recently completed. Previous records requested Osteoarthritis of knee 05/06/2024 Assessment & Plan (10/27/2024 2:34 PM EDT): Patient with a history of osteoarthritis of the knee who has undergone orthoscopic surgeries in the past. Patient mentions that that if she has pain she usually takes acetaminophen however does not want to undergo any surgical procedures for her knees. She states that she is doing quite fine and will continue to do acetaminophen if needed. Colon adenocarcinoma 11/05/2023 Assessment & Plan (02/02/2025 2:39 PM EDT): Patient noted to have a positive Cologuard test which led to her being seen by GI and underwent a colonoscopy revealing colon cancer. She had a large section of her colon removed and since then has been followed by [facility] GI. She did not require any radiation or chemotherapy. She will need to follow-up in 3 years. Assessment & Plan (11/05/2023 10:31 AM EDT): Unfortunately, I do not have any previous records. Per patient, managed by [facility] and next appointment scheduled for November Lung nodule 09/23/2019 Assessment & Plan (11/05/2023 10:32 AM EDT): Per patient report had radiation for nodules through the [facility] Resolved Problems Problem Noted Date Diagnosed Date Resolved Date Osteoporosis 05/06/2024 10/27/2024 Assessment & Plan (05/06/2024 12:18 PM EDT): We will request previous bone density records. Not currently on medication management. Encourage adequate vitamin D and calcium supplementation as well as weight bearing exercise. Heavy cigarette smoker (20-39 per day) 10/29/2019 10/27/2024 Assessment & Plan (05/06/2024 12:17 PM EDT): Declines lung cancer screening and reports previous nodules that were found Encounters Date Type Department Care Team Description 05/26/2025 Orders Only [facility] [place] [facility] [address] [place] [address] Provider, MD Milagros from Last 3 Months Immunizations Immunization Administration Dates Next Due Pneumococcal polysaccharide PPSV23 08/20/2019 Tdap 08/20/2019 Family History Medical History Relation Comments Colon cancer Mother Heart attack Mother Relation Status Comments Father Mother Social History Tobacco Use Types Packs/Day Years Used Date Smoking Tobacco: Every Day Cigarettes 0.1 58.9 Started: [birth year]06/1968 Passive Smoke Exposure: Never Smokeless Tobacco: Never Tobacco Cessation:Ready to Q uit: Not Asked; Counseling Given: Not Answered Comments:Has one cigarette a day, in the [...] on file Sexual Orientation Not on file Last Filed Vital Signs Vital Sign Reading Time Taken Comments Blood Pressure 138/70 02/02/2025 1:46 PM EDT Pulse 80 02/02/2025 1:46 PM EDT Temperature 36.3 C (97.3 F) 02/02/2025 1:46 PM EDT Respiratory Rate 15 02/02/2025 1:46 PM EDT Oxygen Saturation 96% 02/02/2025 1:46 PM EDT Inhaled Oxygen Concentration - - Weight 55.8 kg (123 lb) 02/02/2025 1:46 PM EDT Height 159 cm (5' 2.6 ) 02/02/2025 1:46 PM EDT Body Mass Index 22.07 02/02/2025 1:46 PM EDT Plan of Treatment Upcoming Encounters Date Type Department Care Team (Late st Contact Info) Description 06/01/2025 1:20 PM EST Office Visit [facility] [address], [place] [id number] Tima Sesay PA-C [address] [place] [address] [email or web address] [email or web address] Health Maintenance Due Date Last Done Comments HEPATITIS C SCREENING 01/13/1968 ZOSTER VACCINES (1 of 2) 01/13/1967 PNEUMOCOCCAL VACCINES (50+ years) (2 of 2 - PCV) 08/20/2020 08/20/2019 RSV VACCINE (1 - 1-dose 75+ series) 01/13/2023 INFLUENZA VACCINE (#1) 2025 COVID-19 VACCINE ( - 2024- season) 2025 12/11/2021, 07/02/2021, 10/22/2020, Additional history exists DEPRESSION SCREENING 02/02/2026 02/02/2025 SMOKING Hx and SMOKELESS TOBACCO SCREENING 02/02/2026 02/02/2025 Adult Td,Tdap Booster 08/20/2029 08/20/2019 LIPID PANEL 01/04/2030 01/04/2025, 12/26, 01/04/2025 OSTEOPOROSIS SCREENING INITIAL (ONE-TIME) Completed 05/26/2025, 09/15/2019 HEPATITIS A VACCINES Aged Out No long er eligible based on patient's age to complete this topic HIB VACCINES Aged Out No longer eligi ble based on patient's age to complete this topic MENINGOCOCCAL VACCINES (ACWY) Aged Out No longer eligible based on patient's age to complete this topic MENINGOCOCCAL VACCINES (B) Aged Out N o longer eligible based on patient's age to complete this topic Medical Devices Not on file Procedures Procedure Name Priority Date/Time Associated Diagnosis Comments HM DEXA SCAN Routine 05/26/2025 12:01 PM EDT OUTSIDE HDL Routine 01/04/2025 from Last 3 Months or Most Recently Relevant to Health Maintenance Results * HM DEXA SCAN (05/26/2025 12:01 PM EDT) us Historical Provider HEALTH MAINTENANCE Final Result * Outside HDL (01/04/2025) HDL - External 76 40 - 80 mg/dL us Historical Provider LAB BLOOD ORDERABLES Melissa l Result from Last 3 Months or Most Recently Relevant to Health Maintenance Insurance MEDICARE PART A & B [facility] MEDICARE SUPPLEMENT MEDICARE PART A & B [facility] MEDICARE SUPPLEMENT MEDICARE PART A & B [facility] MEDICARE SUPPLEMENT [employer] [place] MEDICARE PART A & B [facility] MEDICARE SUPPLEMENT MEDICARE PART A & B [employer] MEDICARE SUPPLEMENT MEDICARE PART A & B [employer] MEDICARE SUPPLEMENT Care Teams Mechanotherapist Relationship Specialty Start Date End Date Tima Sesay PA-C [address] [place] [phone] [email or web address] PCP - General Physician Heat Treatment Technician 09/20/24 Additional Source Comments The information contained in this document represents components of the legal health record. It is not the complete legal health record.[facility]
--- OUTSIDE RECORDS SUMMARY | 2025-05-26 13:04 | XMS_ITS | Patient Health Record ---
Author Organization [facility] Address [address] [place] [address] Care Team Providers Care Rn Call Center Name Role Phone Tima Sesay M.D. Primary Care Provider Rudy Turpin Jr Unavailable [phone] Allergies Allergen (clinical drug ingredient) Drug/Non Drug Allergy documented on EMR Reaction Allergy Type Onset Date Status bacitracin Antibiotic Unknown Drug Allergy Activ e Reason For Referral No Information Medications Medication SIG (Take, Route, Frequency, Duration) Notes Start Date End Date Status Stool Softener 100 MG 1 capsule as neede d Orally Once a day; Duration: 30 day(s) 02/25/2022 Active Calcium 600+D 600-800 MG-UNIT 1 tablet with a meal Orally Once a day; Duration: 30 day(s) 02/25/2022 Active Ibuprofen 800 MG Oral; Duration: 30 as needed Active Garlic 300 MG as directed Orally 02/25/2022 Active Immunizations Vaccine Route Administration Date Status Comme nts Influenza Unknown 02/25/2022 Refused Influenza Unknown 12/10/2023 Refused Social History Tobacco Use: Social History Observation Description Date Details (start date - stop date) Current Smoker NA - NA Alcohol Screen Question Answer Notes Did you [...] Never (0 point) Points 4 Interpretation Positive Tobacco Control (Standard) Question Answer Notes Tobacco use: Current smoker How often do you smoke cigarettes? Every day How many cigarettes a day do you smoke? 5 or les s How soon after you wake up do you smoke your fir st cigarette? After 60 minutes Are you interested in quitting? Ready to quit AUDIT-C (Standard) Question Answer Notes Did you have a drink contain ing alcohol in the past year? Yes How often did you have a dri nk containing alcohol in the past year? Daily or almost daily (4 points) How many drinks did you have on a typical day when you were drinking in the past year? 1 or 2 drinks (0 point) How often did you have six o r more drinks on one occasion in the past year? Never (0 point) Points 4 Interpretation Positive Problems Problem Type SNOMED Code ICD Code Onset Dates Problem Status W/U Status Risk Notes Problem Colon cancer screening (753335139) Colon cancer screening (Z12.11) Active confirmed Problem Malignant neoplasm of colon (529065204) Malignant neoplasm of colon, unspecified (C18.9) Active confirmed Problem Diverticular disease of colon (591696778) Diverticulosis of large intestine without perforation or abscess without bleeding (K57.30) Active confirmed Problem [facility] current use of non-steroidal anti-inflammator y drug (575510807614203 ) Encounter for long-term (current) use of NSAIDs (Z79.1) Active confirmed Problem Malignant neoplasm of colon (018861607) Malignant neoplasm of colon, unspecified part of colon (C18.9) Active confirmed Vital Signs Heart Rate 76 /min 03/16/2025 Temperature 98.9 degrees Fahrenheit 03/16/2025 Blood pressure diastolic 01 mm Hg 03/16/2025 Height 65.5 in 03/16/2025 Blood pressure systolic 001 mm Hg 03/16/2025 Weight 122 lbs 03/16/2025 BMI 19.99 kg/m2 03/16/2025 Encounters Encounter Location Date [facility] [address] [place] [address] 03/16/2025 Rudy Young Jr Malignant neoplasm of colon, unspecified part of colon C18.9 ; Diverticulosis of large intestine without perforation or abscess without bleeding K57.30 and Colon cancer screening Z12.11 Assessments Encounter Date Diagnosis (ICD Code) Assessment Notes Treatment Notes Treatment Clinical Notes Section Notes 03/16/2025 Malignant neoplasm of colon, unspecified part of colon (ICD-10 - C18.9) She is currently doing well. We discussed colon cancer today. We discussed her colonoscopy. We discussed the results of her procedure. We recommended she continue close follow-up. 3-year follow-up colonoscopy from her last colonoscopy is recommended. We will see her in follow-up in 1 year. She will call if she has problems. Today's visit was 30 minutes. 03/16/2025 Diverticulosis of large intestine without perforation or abscess without bleeding (ICD-10 - K57.30) She is currently doing well. We discussed colon cancer today. We discussed her colonoscopy. We discussed the results of her procedure. We recommended she continue close follow-up. 3-year follow-up colonoscopy from her last colonoscopy is recommended. We will see her in follow-up in 1 year. She will call if she has problems. Today's visit was 30 minutes. 03/16/2025 Colon cancer screening (ICD-10 - Z12.11) She is currently doing well. We discussed colon cancer today. We discussed her colonoscopy. We discussed the results of her procedure. We recommended she continue close follow-up. 3-year follow-up colonoscopy from her last colonoscopy is recommended. We will see her in follow-up in 1 year. She will call if she has problems. Today's visit was 30 minutes. Plan Of Treatment Pending Test Test Name Order Date BUN 12/09/2022 CREATININE 12/09/2022 LIVER PROFILE 12/09/2022 CEA 12/09/2022 CBC w/o DIFF 12/09/2022 CT ABD & PELVIS WITH CONTRAST 12/09/2022 CT CHEST WITH CONTRAST 12/09/2022 Future Test Test Name Order Date COLONOSCOPY 02/25/2022 COLONOSCOPY 12/10/2023 Next Appt Details Provider Name:Rudy logan Jr, 03/20/2026 10:20:00 AM, [address], [address], [place], [address], Insurance Providers Payer Name Payer Address Payer Phone Subscriber Number Group Number Insured Name Patient Relationship to Insured Coverage Start Date Coverage End Date [place] [address] [place] [address] [id number] MAMIE DEVINE Self - patient is the insured [employer] [address] [place] [address] [id number] MAMIE DEVINE Self - patient is the insured Medical (General) History Medical History History ICD Code Osteoporosis Allergic rhinitis Elevated cholesterol COPD Osteoarthritis Colon cancer, status post tr ansverse colectomy 02/16, T1 N0, Follow-up colonoscopy 02/17, sessile serrated lesions x 2. 3-year follow-up Surgical History Surgery Date(Month/Year) appendectomy Kyphoplasty Anal fistula repair Hemorrhoidectomy hysterectomy tonsilectomy
== END 2025-05-26 10:38 | disposition home or self-care (01) ==
LOC: HO.MAMMO 10:37
PROVIDERS: PCP Physician Assistant Surgical; Visit Provider Physician Assistant Surgical
DX: Z13.820 Encounter for screening for osteoporosis (principal); Z78.0 Asymptomatic menopausal state
CPT/HCPCS: 77080

== ENCOUNTER → 2025-05-26 11:00 | Outpatient (BNV) | payer MEDICARE, OTHER, SELFPAY | PROVIDERS: PCP Physician Assistant Surgical; Visit Provider Radiology Diagnostic Radiology | DX: E28.39 Other primary ovarian failure (principal) | CPT/HCPCS: 77080 ==